=== PATIENT | female | born 1935 | race Caucasian/White ===

== ENCOUNTER 2017-03-12 08:49 | Inpatient (IN) | payer MEDICARE, BC ==
[2017-03-12] MEDS ORDERED: Magnesium Hydroxide 400 MG/5 ML Susp 30 ML Cup PO PRN (09:38)
[2017-03-12] MEDS ORDERED: Albuterol 0.083% 2.5 MG/3 ML Neb Soln INH PRN (09:38)
[2017-03-12] MEDS ORDERED: Albuterol 8 GM Inhaler INH PRN (09:38)
[2017-03-12] MEDS ORDERED: Docusate Sodium 100 MG Cap PO PRN (09:38)
[2017-03-12] MEDS ORDERED: Calcium Carbonate 500 MG Tab.Chew PO PRN (09:38)
--- NOTE | 2017-03-12 09:45 | PCM.SN ---
- Free Text/Narrative Note: Please use acute Admission H&P for Swing Bed admission H&P. Dr. Morris consulted and advised swing bed admission.
[2017-03-12] MEDS: LORazepam 0.5 MG Tab PO PRN ×2 (10:29→18:22)
[2017-03-12] MEDS: Nystatin Susp 100,000 Unit/ML 5 ML UD Cup PO SCH ×3 (11:45→20:25)
[2017-03-12] MEDS: SPIRIVA RESPIMAT IH SCH (16:35)
[2017-03-12] MEDS: Acetaminophen 325 MG Tab PO PRN (18:22)
--- NOTE | 2017-03-12 19:46 | PCM.PN ---
- General Info Date of Service: 03/12/17 Functional Status: Reports: pain controlled - Review of Systems General: Reports: Chills HEENT: Reports: no symptoms Pulmonary: Reports: shortness of breath Cardiovascular: Reports: Palpitations, Dyspnea on Exertion Gastrointestinal: Reports: No symptoms Genitourinary: Reports: no symptoms Musculoskeletal: Reports: no symptoms Skin: Reports: no symptoms Neurological: Reports: Tremors Psychiatric: Reports: no symptoms - Patient Data Vitals - most recent: Last Vital Signs Temp 98.4 F 03/12/17 14:00 Pulse 95 03/12/17 14:00 Resp 20 03/12/17 14:00 BP 149/78 H 03/12/17 14:00 Pulse Ox 92 L 03/12/17 14:00 Weight - most recent: 161 lb 13.109 oz Med Orders - Current: Current Medications Acetaminophen (Tylenol) 650 mg PO Q4H PRN PRN Reason: Pain (Mild 1-3)/fever Last Admin: 03/12/17 18:22 Dose: 650 mg Albuterol (Proventil Neb Soln) 2.5 mg INH BID PRN PRN Reason: Shortness of Breath Albuterol (Ventolin Hfa) 0 gm INH Q4H PRN PRN Reason: Shortness of Breath Budesonide (Pulmicort) 0.5 mg INH BIDRT [facility] Calcium Carbonate/Glycine (Tums) 500 mg PO QID PRN PRN Reason: Dyspepsia Ceftriaxone Sodium (Rocephin) 1 gm IVPUSH Q24H [facility] Docusate Sodium (Colace) 100 mg PO BID PRN PRN Reason: Constipation Enoxaparin Sodium (Lovenox) 30 mg SUBCUT Q24H [facility] Levothyroxine Sodium (Synthroid) 100 mcg PO 0700 [facility] Lorazepam (Ativan) 0 mg PO Q6H PRN PRN Reason: Anxiety Last Admin: 03/12/17 18:22 Dose: 0.5 mg Magnesium Hydroxide (Milk Of Magnesia) 30 ml PO Q12H PRN PRN Reason: Constipation Metoprolol Tartrate (Lopressor) 37.5 mg PO BID [facility] Ptom [Perforomist] (20 Mcg)) 20 mcg NEB BIDRT [facility] Ptom [Daliresp] 500 (Mcg)) 500 mcg PO DAILY [facility] Ptom [Spiriva (Respimat] 2 Inh)) 2 inh IH 1600 [place] Last Admin: 03/12/17 16:35 Dose: 2 inh Nystatin (Mycostatin) 5 ml PO QID [facility] Last Admin: 03/12/17 16:34 Dose: 5 ml Pantoprazole Sodium (Protonix Iv) 40 mg IVPUSH Q24H [facility] Promethazine HCl/Codeine (Phenergan With Codeine) 5 ml PO Q6H PRN PRN Reason: Cough Temazepam (Restoril) 15 mg PO BEDTIME PRN PRN Reason: Sleep - Exam General: alert, oriented, cooperative Neck: supple, trachea midline, no JVD Lungs: Wheezing Cardiovascular: Tachycardia Peripheral Pulses: 2+: Carotid (L), Carotid (R), Radial (L), Radial (R), Posterior Tibial (L), Posterior Tibial (R) Skin: warm, dry, intact Neurological: no new focal deficit Psy/Mental Status: alert, normal affect, normal mood EKG INTERPRETATION EKG Date: 03/12/17 Time: 18:20 Rhythm: other (Atrial Tach?) Rate (beats/min): 168 EKG Interpretation Comments: 2nd EKG at 18:45: Rate 115 Sinus Tach - Problem List Review Problem List Initiated/Reviewed/Updated: Yes - My Orders Last 24 Hours: My Active Orders 03/12/17 18:12 EKG Documentation Completion [RC] STAT - Plan Plan:: 19:05 This patient was admitted for pneumonia, COPD exacerbation. She has been having intermittent periods of HR of 160-170. She has been on Cardizem attempted without success, Digoxin with minimimal improvement, and now metoprolol PO. Patient this evening had HR again of 170, RN informed me. I ordered an EKG, this appears as atrial tachycardia verse rapid a-fib. I have sent EKG to base draw operator and spoke to him, he will review and call me back. The patient after having HR of 170 for about 30 minutes, is now at 110 appearing sinus tach. 194: I called back. Dr. Haywood base draw operator has received the EKGs, he reports he will call me back after he reviews them. 20:05: I spoke to base draw operator, he reports the EKG looks like ventricular rapid a-fib. He reports continue the Metroprolol. He reports if she goes back up to 170s treat with Cardizem. If that is not effective could as a another resort to Amiodarone. He reports if she continues to go in and out of a-fib he would anticoagulate her long-term.RN notified to inform me if patient HR changes.
[2017-03-12] MEDS: Metoprolol Tartrate 25 MG Tab PO SCH (20:25)
[2017-03-12] MEDS: Budesonide 0.5 MG/2 ML Neb Susp INH SCH (20:28)
[2017-03-12] MEDS: PERFOROMIST 20 MCG NEB SCH (20:32)
[2017-03-12] MEDS: Temazepam 15 MG Cap PO PRN (21:50)
[2017-03-12] MEDS: Codeine/Promethazine 10-6.25 MG/5 ML Syrup 5 ML UD Cup PO PRN (22:20)
[2017-03-13] MEDS: Levothyroxine 100 MCG Tab PO SCH (06:34)
[2017-03-13] MEDS: Metoprolol Tartrate 25 MG Tab PO SCH ×2 (07:44→20:10)
[2017-03-13] MEDS: Nystatin Susp 100,000 Unit/ML 5 ML UD Cup PO SCH ×4 (07:45→20:10)
[2017-03-13] MEDS: Pantoprazole 40 MG Vial IVPUSH SCH (07:45)
[2017-03-13] MEDS: cefTRIAXone 1 GM Vial IVPUSH SCH (07:50)
[2017-03-13] MEDS: Enoxaparin 30 MG/0.3 ML Syringe SUBCUT SCH (07:54)
[2017-03-13] MEDS: DALIRESP 500 MCG PO SCH (08:16)
[2017-03-13] MEDS: LORazepam 0.5 MG Tab PO PRN (08:17)
[2017-03-13] MEDS: Budesonide 0.5 MG/2 ML Neb Susp INH SCH ×2 (08:40→20:11)
[2017-03-13] MEDS: PERFOROMIST 20 MCG NEB SCH ×2 (08:40→20:11)
[2017-03-13] MEDS: SPIRIVA RESPIMAT IH SCH (16:24)
[2017-03-13] MEDS: Codeine/Promethazine 10-6.25 MG/5 ML Syrup 5 ML UD Cup PO PRN (21:00)
[2017-03-13] MEDS: Temazepam 15 MG Cap PO PRN (21:00)
[2017-03-14] MEDS: Levothyroxine 100 MCG Tab PO SCH (07:24)
[2017-03-14] MEDS: Metoprolol Tartrate 25 MG Tab PO SCH ×2 (07:43→19:59)
[2017-03-14] MEDS: Nystatin Susp 100,000 Unit/ML 5 ML UD Cup PO SCH ×4 (07:44→20:01)
[2017-03-14] MEDS: Enoxaparin 30 MG/0.3 ML Syringe SUBCUT SCH (07:45)
[2017-03-14] MEDS: Pantoprazole 40 MG Vial IVPUSH SCH (07:46)
[2017-03-14] MEDS: DALIRESP 500 MCG PO SCH (07:50)
[2017-03-14] MEDS: cefTRIAXone 1 GM Vial IVPUSH SCH (07:51)
[2017-03-14] MEDS: PERFOROMIST 20 MCG NEB SCH ×2 (08:54→20:01)
[2017-03-14] MEDS: Budesonide 0.5 MG/2 ML Neb Susp INH SCH ×2 (08:54→20:01)
[2017-03-14] MEDS: Acetaminophen 325 MG Tab PO PRN ×2 (08:57→16:09)
[2017-03-14] MEDS: Codeine/Promethazine 10-6.25 MG/5 ML Syrup 5 ML UD Cup PO PRN ×2 (08:57→20:03)
[2017-03-14] MEDS: SPIRIVA RESPIMAT IH SCH (16:14)
[2017-03-14] MEDS: Temazepam 15 MG Cap PO PRN (21:00)
[2017-03-15] MEDS: Levothyroxine 100 MCG Tab PO SCH (06:37)
[2017-03-15 07:43] VITALS: BP 157/90
[2017-03-15] MEDS: Metoprolol Tartrate 25 MG Tab PO SCH (07:51)
[2017-03-15] MEDS: Enoxaparin 30 MG/0.3 ML Syringe SUBCUT SCH (07:53)
[2017-03-15] MEDS: Pantoprazole 40 MG Vial IVPUSH SCH (07:54)
[2017-03-15] MEDS: cefTRIAXone 1 GM Vial IVPUSH SCH (07:55)
[2017-03-15] MEDS: DALIRESP 500 MCG PO SCH (07:55)
[2017-03-15] MEDS: Nystatin Susp 100,000 Unit/ML 5 ML UD Cup PO SCH (08:05)
[2017-03-15] MEDS: PERFOROMIST 20 MCG NEB SCH (09:25)
[2017-03-15] MEDS: Budesonide 0.5 MG/2 ML Neb Susp INH SCH (09:25)
--- NOTE | 2017-03-16 08:58 | DISCH ---
FINAL DIAGNOSES: 1. Right middle lobe pneumonia. 2. Atrial fibrillation, currently in sinus rhythm. 3. Oral thrush. HISTORY OF PRESENT ILLNESS: Jes is an 81-year-old female who was admitted to the hospital initially on 03/08 secondary to right middle lobe pneumonia. She responded well to IV antibiotic treatment. However, she did have a bout of atrial fibrillation with rapid ventricular response in which she was given IV Cardizem along with IV digoxin without any conversion. Dr. Morris then went ahead and did start her on metoprolol, on which she did convert back to normal sinus rhythm. She has had one episode of RVR throughout the week and however she has been fairly stable on metoprolol at this point in time. She has not had anything in the last 24 hours in regard to her rapid ventricular response. She has been feeling quite well. She states that she continues to have little bit of cough. She has been afebrile. She states that she has been up walking, does feel like her strength is back as well. It does feel that she is feeling well enough to go home at this point in time. HOSPITAL COURSE: Please see HPI. LABORATORY DATA: From 03/13 shows a white blood count to be 7900, CRP was mildly elevated at 5.4. Initially on admit, she was at 23. White blood count on admit was 11,400, then again backed down to 7,900 at this point in time. DISCHARGE MEDICATIONS: Resume all home medications. She was also restarted on metoprolol tartrate 37.5 mg b.i.d. along with Ceftin 500 mg twice a day for the next 7 days. She will also have a nystatin swish and swallow one teaspoonful q.i.d. x10 days. DISCHARGE INSTRUCTIONS: She will be able to resume her usual diet. She will be discharged home at this point in time. She has a followup appointment in 1 week with Piper Yancey PA-C, her primary provider. I told her that we would need to closely look at repeat imaging just to make sure that the pneumonia has completely cleared as well. Daughter was present today and they are both in agreement with discharge at this time. She will have echocardiogram today as well. RUBÉN/STONEY /[id number]
== END 2017-03-15 10:03 | disposition home or self-care (01) | DRG 190 ==
LOC: UNDOADMIN 08:49 → CC.MS 08:49 → UNDOADMIN 09:40 → CC.MS 09:40
PROVIDERS: ADMIT Physician Assistant Medical; ATTEND Family Medicine
DX: J44.0 Chronic obstructive pulmonary disease with (acute) lower respiratory infection (principal); J18.9 Pneumonia, unspecified organism; B37.0 Candidal stomatitis; J44.1 Chronic obstructive pulmonary disease with (acute) exacerbation; Z87.891 Personal history of nicotine dependence; I48.91 Unspecified atrial fibrillation; Z88.2 Allergy status to sulfonamides; Z79.899 Other long term (current) drug therapy
CPT/HCPCS: 36415; 85025; 86140; 93005; 94640; A9270-GY; C9113; J0696; J1650

== ENCOUNTER 2019-08-27 13:49 | Emergency (ER) | payer MEDICARE, BC ==
[2019-08-27 14:13] VITALS: BP 151/92; PULSE 78
--- NOTE | 2019-08-27 15:32 | EDM.PDOC ---
ED HPI GENERAL MEDICAL PROBLEM - General Chief Complaint: General Stated Complaint: arm pain Time Seen by Provider: 08/27/19 13:53 Source of Information: Reports: Patient History Limitations: Reports: No Limitations - History of Present Illness INITIAL COMMENTS - FREE TEXT/NARRATIVE: This patient is an 83 year old female that presents to the ER. Patient reports she was at [facility] and walking out of yarsanism when she tripped and fell. Patient reports hitting the right cheek, but it does not hurt. Patient reports landing on her right wrist. Patient denies hitting head, loc, n, v, vision changes, neck pain, chest pain, shortness of breath, or any other complaints other than pain to the right wrist. Patient reports she was able to get up and waled into the ER. Patient denies being on blood thinners. 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 2 - got hit here, but no pain, no tenderness. Severity: Mild Improves with: Reports: None Worsens with: Reports: None Associated Symptoms: Reports: No Other Symptoms. Denies: Confusion, Chest Pain , Headaches, Malaise, Nausea/Vomiting, Seizure, Shortness of Breath, Syncope, Weakness Right Lower Arm Pain Score (Numeric/FACES): 7 - Related Data Allergies Allergy/AdvReac Type Severity Reaction Status Date / Time Sulfa (Sulfonamide Allergy Intermediate Swollen Verified 03/30/19 08:23 Antibiotics) Tongue Home Meds: Home Meds Albuterol Sulfate 3 ml INH DAILY PRN 02/04/15 [History] Levothyroxine [Synthroid] 100 mcg PO DAILY 02/05/15 [History] Tiotropium [Spiriva HandiHaler] 2 inh INH DAILY 02/05/15 [History] Beta-Carotene(A) W-C & E/Min [Vision Vitamins] 2 tab PO DAILY 04/10/15 [History] Calcium Carb & Citrate/Vit D3 [Calcium + D3 ER Tablet] 1 tab PO DAILY 04/10/15 [ History] Garlic [Garlique] 1 tab PO DAILY 04/10/15 [History] Budesonide [Pulmicort] 0.5 mg INH BID 07/31/16 [History] Formoterol [Perforomist] 20 mcg NEB BIDRT 07/31/16 [History] Roflumilast [Daliresp] 500 mcg PO DAILY 07/31/16 [History] Denosumab [Prolia] 60 mg SUBCUT Q6M 03/08/17 [History] LORazepam 0.25 - 0.5 mg PO Q6H 03/08/17 [History] Ranitidine HCl [Zantac 75] 75 mg PO DAILY PRN 03/08/17 [History] Metoprolol Tartrate 37.5 mg PO BID #60 tablet 03/15/17 [Rx] Montelukast Sodium 10 mg PO DAILY 03/07/18 [History] Acetaminophen [Tylenol Extra Strength] 500 mg PO Q4HR PRN 03/28/19 [History] Albuterol [Ventolin 2 MG/5 ML] 1 ea INH Q4HR PRN 03/28/19 [History] Betamethasone Dipropionate [Diprosone 0.05% Oint] 1 ea .XX BID PRN 03/28/19 [ History] Escitalopram Oxalate 5 mg PO DAILY 03/28/19 [History] Fluticasone Propionate [Flonase Allergy Relief] 2 each ANDER DAILY PRN 03/28/19 [ History] Past Medical History HEENT History: Reports: Cataract, Macular Degeneration Respiratory History: Reports: COPD Other Respiratory History: saw Dr. Gordillo here on 02-04-17 as a followup; PFT done at that time; he encouraged her to come back to pulmonary rehab - Past Surgical History Other Respiratory Surgeries/Procedures: also see admission general information GI Surgical History: Reports: Cholecystectomy Other Musculoskeletal Surgeries/Procedures:: left knee bothers Social & Family History - Family History Family Medical History: Noncontributory - Tobacco Use Smoking Status *Q: Former Smoker Used Tobacco, but Quit: Yes Month/Year Tobacco Last Used: 2004 - Caffeine Use Caffeine Use: Reports: Coffee ED ROS GENERAL - Review of Systems Review Of Systems: See Below Constitutional: Reports: No Symptoms HEENT: Reports: No Symptoms Respiratory: Reports: No Symptoms Cardiovascular: Reports: No Symptoms Endocrine: Reports: No Symptoms GI/Abdominal: Reports: No Symptoms : Reports: No Symptoms Musculoskeletal: Reports: Joint Pain (right wrist), Joint Swelling (right wrist) . Denies: Neck Pain, Shoulder Pain, Arm Pain, Back Pain, Leg Pain Skin: Reports: No Symptoms Neurological: Reports: No Symptoms Psychiatric: Reports: No Symptoms Hematologic/Lymphatic: Reports: No Symptoms Immunologic: Reports: No Symptoms ED EXAM, GENERAL - Physical Exam Exam: See Below Exam Limited By: No Limitations General Appearance: Alert, WD/WN, No Apparent Distress Eye Exam: Bilateral Eye: EOMI, Normal Inspection, PERRL Ears: Normal External Exam, Normal Canal, Hearing Grossly Normal, Normal TMs, Other (hearing aids removed for exam by patient and put back by patient.) Ear Exam: Bilateral Ear: Auricle Normal, Canal Normal, TM normal Nose: Normal Inspection, Normal Mucosa, No Blood Throat/Mouth: Normal Inspection, Normal Lips, Normal Teeth, Normal Gums, Normal Oropharynx, Normal Voice, No Airway Compromise Head: Atraumatic, Normocephalic. No: Facial Swelling, Facial Tenderness, Sinus Tenderness Neck: Normal Inspection, Supple, Non-Tender, Full Range of Motion Respiratory/Chest: No Respiratory Distress, Lungs Clear, Normal Breath Sounds, No Accessory Muscle Use, Chest Non-Tender Cardiovascular: Normal Peripheral Pulses, Regular Rate, Rhythm, No Edema, No Gallop, No JVD, No Murmur, No Rub Peripheral Pulses: 2+: Radial (L), Radial (R), Posterior Tibial (L), Posterior Tibial (R), Dorsalis Pedis (L), Dorsalis Pedis (R) GI/Abdominal: Normal Bowel Sounds, Soft, Non-Tender, No Organomegaly, No Distention, No Abnormal Bruit, No Mass, Pelvis Stable (Female) Exam: Deferred Rectal (Female) Exam: Deferred Back Exam: Normal Inspection, Full Range of Motion. No: CVA Tenderness (L), CVA Tenderness (R), Decreased Range of Motion, Muscle Spasm, Paraspinal Tenderness, Vertebral Tenderness Extremities: No Pedal Edema, Normal Capillary Refill, Joint Swelling (right wrist), Limited Range of Motion (due to pain of right wrist), Other (Right distal radial wrist pain, tenderness, swelling. Pulses +2, cap refill < 2 sec. Sensory itnact. Neurovascular intact. ) Neurological: Alert, Oriented, Normal Cognition, Normal Gait, No Motor/Sensory Deficits Psychiatric: Normal Affect, Normal Mood Skin Exam: Warm, Dry, Intact, Normal Color, No Rash ED GENERAL MEDICAL PROCEDURES - Splinting Right Upper Extremity Pre-procedure NV status: Normal Post-procedure NV status: Normal Splint Material: Fiberglass, Sling Splint Design: Sugar Tong Applied & Form Fitted By: Provider Provider Post-Splint Application NV Check: NV Status Normal, Good Position Complications: No Course - Vital Signs Last Recorded V/S: Last Vital Signs Temp 98.2 F 08/27/19 14:01 Pulse 78 08/27/19 14:01 Resp 18 08/27/19 14:01 BP 151/92 H 08/27/19 14:01 Pulse Ox 98 08/27/19 14:01 - Orders/Labs/Meds Orders: Active Orders 24 hr Category Date Time Status Forearm 2V Rt [CR] Stat Exams 08/27/19 13:52 Taken Wrist Comp Min 3V Rt [CR] Stat Exams 08/27/19 13:52 Taken - Radiology Interpretation Free Text/Narrative:: Right wrist: Fracture distal radius. No dislocation, no fb. Departure - Departure Time of Disposition: 15:32 Disposition: Home, Self-Care 01 Condition: Fair Clinical Impression: Radius fracture, Fall - Discharge Information *PRESCRIPTION DRUG MONITORING PROGRAM REVIEWED*: Not Applicable *COPY OF PRESCRIPTION DRUG MONITORING REPORT IN PATIENT STEPHEN: Not Applicable Instructions: Radial Fracture, Cast or Splint Care, Adult, [id number] Referrals: Piper Yancey PA-C [Primary Care Provider] - Forms: ED Department Discharge Additional Instructions: Followup with Orthopedic: I spoke with orthopedic at [facility]. Call orthopedic Wednesday for an appointment to be seen this week Return to the ER for worsening of condition or any emergent concerns Followup with primary care provider as needed May take Tylenol or Motrin for pain :Take with food Rest Ice Elevate Sling - My Orders Last 24 Hours: My Active Orders 08/27/19 13:52 Forearm 2V Rt [CR] Stat Wrist Comp Min 3V Rt [CR] Stat - Assessment/Plan Last 24 Hours: My Active Orders 08/27/19 13:52 Forearm 2V Rt [CR] Stat Wrist Comp Min 3V Rt [CR] Stat Plan: Please see RN note for for PFSH
== END 2019-08-27 16:00 | disposition home or self-care (01) ==
LOC: CC.ED 13:49
DX: S52.501A Unspecified fracture of the lower end of right radius, initial encounter for closed fracture (principal); J44.9 Chronic obstructive pulmonary disease, unspecified; Z88.2 Allergy status to sulfonamides; Z79.51 Long term (current) use of inhaled steroids; Z87.891 Personal history of nicotine dependence; W01.10XA Fall on same level from slipping, tripping and stumbling with subsequent striking against unspecified object, initial encounter
CPT/HCPCS: 29125; 73090-RT; 73110-RT; 99283-25; 99284

== ENCOUNTER 2019-09-02 11:57 | Inpatient (IN) | payer MEDICARE, BC ==
[2019-09-02] MEDS ORDERED: Albuterol/Ipratropium 3.0-0.5 MG/3 ML Neb Soln NEB ONE (12:18)
[2019-09-02 12:31] LABS: CHLORIDE,CL 95 mEq/L (98-106); SODIUM,NA 132 mEq/L (136-145)
[2019-09-02] MEDS ORDERED: Azithromycin 500 MG in Sodium Chloride 0.9% 250 ML IV SCH (14:17)
[2019-09-02] MEDS ORDERED: Albuterol 0.083% 2.5 MG/3 ML Neb Soln INH PRN (14:17)
[2019-09-02] MEDS ORDERED: Fluticasone Propionate Nasal Spray 16 GM Bottle NAS PRN (14:17)
[2019-09-02] MEDS ORDERED: BETAMETHASONE DIPROPIONATE TOP PRN (14:17)
[2019-09-02] MEDS ORDERED: cefTRIAXone 1 GM Vial IVPUSH SCH (14:17)
[2019-09-02] MEDS ORDERED: Temazepam 15 MG Cap PO PRN (14:17)
[2019-09-02] MEDS ORDERED: Albuterol/Ipratropium 3.0-0.5 MG/3 ML Neb Soln NEB PRN (14:17)
[2019-09-02] MEDS ORDERED: Ondansetron 4 MG/2 ML SDV IV PRN (14:17)
[2019-09-02] MEDS ORDERED: Famotidine 20 MG Tab PO PRN (14:17)
[2019-09-02] MEDS: Albuterol/Ipratropium 3.0-0.5 MG/3 ML Neb Soln NEB SCH ×2 (15:18→19:23)
[2019-09-02] MEDS ORDERED: Acetaminophen 325 MG Tab PO PRN (17:27)
[2019-09-02] MEDS ORDERED: Enoxaparin 40 MG/0.4 ML Syringe SUBCUT SCH (18:00)
[2019-09-02] MEDS ORDERED: Metoprolol Tartrate 25 MG Tab PO SCH (20:00)
[2019-09-02] MEDS ORDERED: Non-Formulary Medication 1 Each (Formoterol [Perforomist] 20 MCG) NEB SCH (20:00)
[2019-09-02] MEDS ORDERED: Budesonide 0.5 MG/2 ML Neb Susp INH SCH (20:00)
[2019-09-02] MEDS ORDERED: Diltiazem 25 MG/5 ML SDV IVPUSH ONE ×2 (20:00→21:37)
--- NOTE | 2019-09-02 20:10 | PCM.PN ---
- General Info Date of Service: 09/02/19 Functional Status: Reports: Ambulating - Review of Systems Pulmonary: Reports: Shortness of Breath (extremely, much worse after walking to bathroom at 1915. ) Cardiovascular: Reports: Palpitations Gastrointestinal: Reports: Nausea. Denies: Abdominal Pain Genitourinary: Reports: No Symptoms Musculoskeletal: Reports: No Symptoms Skin: Reports: No Symptoms Neurological: Reports: No Symptoms Psychiatric: Reports: Anxiety - Patient Data Vitals - Most Recent: Last Vital Signs Temp 101.1 F H 09/02/19 19:37 Pulse 160 H 09/02/19 19:44 Resp 20 09/02/19 19:37 BP 146/85 H 09/02/19 19:44 Pulse Ox 90 L 09/02/19 19:37 Weight - Most Recent: 145 lb Lab Results Last 24 Hours: Laboratory Results - last 24 hr 09/02/19 09/02/19 09/02/19 Range/Units 12:07 12:07 12:11 WBC 11.2 H (5.0-10.0) 10^3/uL RBC 3.48 L (4.00-5.50) 10^6/uL Hgb 10.9 L (12.0-16.0) g/dL Hct 32.7 L (37.0-47.0) % MCV 94.0 (82.0-94.0) fL MCH 31.3 (27.0-32.0) pg MCHC 33.3 (33.0-38.0) g/dL RDW Coeff of Teodora 13.1 (11.0-15.0) % Plt Count 267 (150-400) 10^3/uL Neut % (Auto) 83.1 (35-85) % Lymph % (Auto) 6.7 L (10-55) % [place] % (Auto) 9.9 (0-16) % Eos % (Auto) 0.1 (0-5) % Baso % (Auto) 0.2 (0-3) % Neut # (Auto) 9.32 H (1.80-7.00) 10^3/uL Lymph # (Auto) 0.75 L (1.00-4.80) 10^3/uL [place] # (Auto) 1.11 H (0.00-0.80) 10^3/uL Eos # (Auto) 0.01 (0.00-0.45) 10^3/uL Baso # (Auto) 0.02 10^3/uL Sodium 132 L (136-145) mEq/L Potassium 3.8 (3.5-5.0) mEq/L Chloride 95 L (98-106) mEq/L Carbon Dioxide 26 (21-32) mmol/L BUN 11 D (7-18) mg/dL Creatinine 0.7 (0.6-1.0) mg/dL Est Cr Clr Drug Dosing TNP Estimated GFR (MDRD) > 60 (>=60) mL/min Glucose 119 H (75-99) mg/dL Lactic Acid 1.1 (0.4-2.0) mmol/L Calcium 8.7 (8.4-10.1) mg/dL Total Bilirubin 0.3 (0.0-1.0) mg/dL AST 21 (15-37) U/L ALT 28 (12-78) U/L Alkaline Phosphatase 80 (46-116) U/L C-Reactive Protein 15.6 H (0.2-0.8) mg/dL Total Protein 6.8 (6.4-8.2) g/dL Albumin 2.7 L (3.4-5.0) g/dL Win Results Last 24 Hours: Microbiology 09/02/19 12:07 Influenza Type A Antigen Screen - Final Nasopharyngeal Swab NEGATIVE INFLUENZA A VIRUS AG REFERENCE RANGE: NEGATIVE Influenza Type B Antigen Screen - Final NEGATIVE INFLUENZA B VIRUS AG REFERENCE RANGE: NEGATIVE Med Orders - Current: Current Medications Acetaminophen (Tylenol) 650 mg PO Q6H PRN PRN Reason: Pain Last Admin: 09/02/19 17:39 Dose: 650 mg Albuterol (Proventil Neb Soln) 2.5 mg INH DAILY PRN PRN Reason: Shortness of Breath Albuterol/Ipratropium (Duoneb 3.0-0.5 Mg/3 Ml) 3 ml NEB Q4H PRN PRN Reason: Shortness Of Breath/wheezing Albuterol/Ipratropium (Duoneb 3.0-0.5 Mg/3 Ml) 3 ml NEB QIDRT [facility] Last Admin: 09/02/19 19:23 Dose: 3 ml Budesonide (Pulmicort) 0.5 mg INH BIDRT [facility] Last Admin: 09/02/19 19:44 Dose: 0.5 mg Calcium Carbonate (Calcium Carbonate/Vitamin D 1250 Mg-200 Unit) 1 tab PO DAILY [facility] Ceftriaxone Sodium (Rocephin) 1 gm IVPUSH Q24H [facility] Last Admin: 09/02/19 15:18 Dose: 1 gm Citalopram Hydrobromide (Celexa) 10 mg PO DAILY [facility] Diltiazem HCl (Diltiazem) 20 mg IVPUSH ONETIME ONE Stop: 09/02/19 20:01 Enoxaparin Sodium (Lovenox) 40 mg SUBCUT Q24H [facility] Last Admin: 09/02/19 18:04 Dose: 40 mg Famotidine (Pepcid) 10 mg PO DAILY PRN PRN Reason: Nausea Fluticasone Propionate (Flonase) 0 gm ANDRE DAILY PRN PRN Reason: Allergies Azithromycin 500 mg/ Sodium (Chloride) 250 mls @ 250 mls/hr IV Q24H [facility] Last Admin: 09/02/19 15:18 Dose: 250 mls/hr Diltiazem HCl 100 mg/ Sodium (Chloride) 100 mls @ 5 mls/hr IV TITRATE [facility]; Protocol Levothyroxine Sodium (Synthroid) 100 mcg PO DAILY [facility] Metoprolol Tartrate (Lopressor) 37.5 mg PO BID [facility] Last Admin: 09/02/19 19:44 Dose: 37.5 mg Multivitamins/Minerals (Prosight) 2 tab PO DAILY [facility] Non-Formulary Medication (Betamethasone Dipropionate) 1 applic TOP BID PRN PRN Reason: wound Non-Formulary Medication (Formoterol [Perforomist]) 20 mcg NEB BIDRT [facility] Non-Formulary Medication (Garlic [Garlique]) 1 tab PO DAILY [facility] Non-Formulary Medication (Roflumilast [Daliresp]) 500 mcg PO DAILY [facility] Ondansetron HCl (Zofran) 4 mg IV Q6H PRN PRN Reason: Nausea/Vomiting Temazepam (Restoril) 15 mg PO BEDTIME PRN PRN Reason: Sleep Tiotropium [place] (Spiriva Handihaler) 18 mcg INH DAILY [facility] Discontinued Medications Albuterol/Ipratropium (Duoneb 3.0-0.5 Mg/3 Ml) 3 ml NEB ONETIME ONE Stop: 09/02/19 12:19 Last Admin: 09/02/19 12:26 Dose: 3 ml - Exam General: Alert, Oriented, Severe Distress Lungs: Rhonchi (moderate throughout), Other (Respiratory distress, 34/min.) Cardiovascular: Irregular Rhythm, Tachycardia GI/Abdominal Exam: Soft, Non-Tender Extremities: Normal Inspection, No Pedal Edema Peripheral Pulses: 2+: Radial (L), Radial (R), Posterior Tibial (L), Posterior Tibial (R) Skin: Warm, Dry, Intact Psy/Mental Status: Alert, Anxious - Problem List Review Problem List Initiated/Reviewed/Updated: Yes - My Orders Last 24 Hours: My Active Orders 09/02/19 Chest 2V [CR] Routine 09/02/19 12:07 CULTURE BLOOD [BC] Routine 09/02/19 12:18 RT Aerosol Therapy [RC] 0800,1200,1600,199909/02/19 14:00 Resuscitation Status Routine 09/02/19 14:17 Patient Status [ADT] Routine Antiembolic Devices [RC] 1000,2200 February Shower [RC] .PRN Notify Provider Vital Signs [RC] .PRN Oxygen Therapy [RC] .PRN Pulse Oximetry [RC] .PRN Up With Assistance [RC] .PRN Up to Chair [RC] .PRN Vital Signs [RC] 0000,0800,1200,1600,1999 Albuterol [Proventil Neb Soln] 2.5 mg INH DAILY PRN Albuterol/Ipratropium [DuoNeb 3.0-0.5 MG/3 ML] 3 ml NEB Q4H PRN Azithromycin [Zithromax] 500 mg Sodium Chloride 0.9% [Normal Saline] 250 ml IV Q24H Betamethasone Dipropionate 1 applic TOP BID PRN Famotidine [Pepcid] 10 mg PO DAILY PRN Fluticasone Propionate [Flonase] 0 gm ANDRE DAILY PRN Ondansetron [Zofran] 4 mg IV Q6H PRN Temazepam [Restoril] 15 mg PO BEDTIME PRN cefTRIAXone [Rocephin] 1 gm IVPUSH Q24H Antiembolic Hose [OM.PC] Per Unit Routine 09/02/19 16:00 Albuterol/Ipratropium [DuoNeb 3.0-0.5 MG/3 ML] 3 ml NEB QIDRT 09/02/19 17:27 Acetaminophen [Tylenol] 650 mg PO Q6H PRN 09/02/19 18:00 Enoxaparin [Lovenox] 40 mg SUBCUT Q24H 09/02/19 19:45 EKG Documentation Completion [RC] STAT 09/02/19 20:00 Budesonide [Pulmicort] 0.5 mg INH BIDRT Diltiazem 20 mg IVPUSH ONETIME ONE Diltiazem [Cardizem] 100 mg Sodium Chloride 0.9% [Normal Saline] 100 ml IV TITRATE Formoterol [Perforomist] 20 mcg NEB BIDRT Metoprolol Tartrate [Lopressor] 37.5 mg PO BID 09/02/19 Dinner Heart Healthy Diet [DIET] 09/03/19 05:00 BASIC METABOLIC PANEL,BMP [CHEM] DAILY C-REACTIVE PROTEIN [CHEM] DAILY CBC WITH AUTO DIFF [HEME] DAILY 09/03/19 08:00 Beta-Carotene(A) w/C & E/Min [Prosight] 2 tab PO DAILY Calcium Carbonate/Vitamin D3 [Calcium Carbonate/Vitamin D 1250 MG-200 Unit] 1 tab PO DAILY Citalopram [Celexa] 10 mg PO DAILY Garlic [Garlique] 1 tab PO DAILY Levothyroxine [Synthroid] 100 mcg PO DAILY Roflumilast [Daliresp] 500 mcg PO DAILY Tiotropium [Spiriva HandiHaler] 18 mcg INH DAILY 09/04/19 05:00 BASIC METABOLIC PANEL,BMP [CHEM] DAILY C-REACTIVE PROTEIN [CHEM] DAILY CBC WITH AUTO DIFF [HEME] DAILY 09/05/19 05:00 BASIC METABOLIC PANEL,BMP [CHEM] DAILY C-REACTIVE PROTEIN [CHEM] DAILY CBC WITH AUTO DIFF [HEME] DAILY - Plan Plan:: 09/02/191954 I got told by NEDA Sanders that the patient has a rapid HR and is more short of breath. I went to examine the patient, EKG ordered. The patient HR is irregular and fast. Patient appears much more short of breath than earlier today. Patient does have history of A-fib. 09/02/191999 Reviewed EKG: Lots of artifact, but appears to be rapid a-fib uncontrolled. I have ordered Cardizem bolus and gtt protocol. 11/09/19 2018 Patient has received the bolus cardizem, Her HR came down to 130s, then right back up to 1502-170s. GTT has been started. 09/02/19 2030 Bolus now at 10mg/hr. She remains HR of 150s. I ordered a CT angio of the chest. I have called [facility] ER and spoke to Dr. Landin. He recommends to keep tritrating the Cardizem, do the angio of chest, and fly patient. Asked [facility] to arrange transfer. Will transfer patient. Risk vs benefits discussed with patient. The risk of transfer include crash, , worsening of condition. The benefits of transfer include higher level of care, ICU, cnc grinder, irrigator sprinkling system. The benefits of staying in [place] are close to home. The risk of staying in [place] is , worsening of condition. PLEASE USE THIS H&P AND NOTE TRANSFER NOTE TO ACUTE CARE [facility] VIA FLIGHT. 09/02/192224 Patient HR is now is at 130s a-fib. Patient got another 5mg bolus of cardizem. She is currently at 15mg/hr titration. Patient reports her shortness of breath feels better. Radiologist called with Angio of chest results: No PE, new from previous pulmonary fibrosis, significant lung disease, multifocal infiltrates, bronchial thickening, interstitual edema.
[2019-09-02] MEDS: Diltiazem 100 MG in Sodium Chloride 0.9% 100 ML IV SCH ×2 (20:20→22:41)
[2019-09-02] MEDS ORDERED: Ibuprofen 200 MG Tab PO ONE (20:31)
[2019-09-02] MEDS ORDERED: LORazepam 2 MG/ML Syringe IVPUSH ONE (21:12)
[2019-09-02 21:35] VITALS: BP 130/75; PULSE 133
[2019-09-03] MEDS ORDERED: Calcium Carbonate/Vitamin D3 1250 MG-200 Unit Tab PO SCH (08:00)
[2019-09-03] MEDS ORDERED: Citalopram 10 MG Tab PO SCH (08:00)
[2019-09-03] MEDS ORDERED: Beta-Carotene (Vitamin A) w/Vitamin C & E plus Minerals Tab PO SCH (08:00)
[2019-09-03] MEDS ORDERED: Non-Formulary Medication 1 Each (Roflumilast [Daliresp] 500 MCG) PO SCH (08:00)
[2019-09-03] MEDS ORDERED: Tiotropium Inhaler 18 MCG Inhalation Powder Cap Kit of 5 INH SCH (08:00)
[2019-09-03] MEDS ORDERED: Levothyroxine 100 MCG Tab PO SCH (08:00)
[2019-09-03] MEDS ORDERED: GARLIC PO SCH (08:00)
== END 2019-09-02 22:57 | DRG 203 ==
LOC: CC.FCMC 11:57 → CC.ACU 11:57 → CC.MS 13:53 → UNDOADMIN 13:53 → CC.MS 14:00 → UNDODISIN 22:57
PROVIDERS: ADMIT Nurse Practitioner; ATTEND Family Medicine
DX: J20.9 Acute bronchitis, unspecified (principal); I48.91 Unspecified atrial fibrillation; Z88.2 Allergy status to sulfonamides; Z79.899 Other long term (current) drug therapy; Z79.51 Long term (current) use of inhaled steroids
CPT/HCPCS: 36415; 71046; 71275; 80053; 83605; 85025; 86140; 87040; 87804; 93005; 94640; A9270-GY; J0456; J0696; J1650; J2060; J3490; J7050; J7620-GY

== ENCOUNTER 2019-11-06 21:39 | Inpatient (IN) | payer MEDICARE, BC ==
--- NOTE | 2019-11-06 22:24 | EDM.PDOC ---
ED HPI GENERAL MEDICAL PROBLEM - General Chief Complaint: Respiratory Problem Stated Complaint: SOB Time Seen by Provider: 11/06/19 22:00 Source of Information: Reports: Patient, Family (daughter/granddaughter.) History Limitations: Reports: No Limitations - History of Present Illness INITIAL COMMENTS - FREE TEXT/NARRATIVE: increasing SOB. Was seen in the clinic about 1500 today and had CXR without pneumonia. Her CBC then showed WBC or 5.7, CRP was 1 and BMP has Na+ orf 134 otherwise was normal. O2 sats in the clinic was 90% on room air. Was sent home on oral prednisone which she did not take as it keeps her awake. I was going to start it in the AM. When she went to bed she had increase in SOB even with her O2 on at 2L. When she arrived here she had sats of 82% and they did go up to mid 90's% when oxygen was applied. She has audible wheezing at this time. No fever noted. She has been taking her nebs as ordered at home. Cough is still productive of white- clear sputum. Onset: Gradual Location: Reports: Chest Improves with: Reports: Rest Worsens with: Reports: Movement Associated Symptoms: Denies: Fever/Chills - Related Data Allergies Allergy/AdvReac Type Severity Reaction Status Date / Time Sulfa (Sulfonamide Allergy Intermediate Swollen Verified 11/06/19 21:41 Antibiotics) Tongue Home Meds: Home Meds Albuterol Sulfate 3 ml INH DAILY 02/04/15 [History] Levothyroxine [Synthroid] 100 mcg PO DAILY 02/05/15 [History] Tiotropium [Spiriva HandiHaler] 2 puff INH DAILY 02/05/15 [History] Beta-Carotene(A)-Vits C,E/Mins [Vision Vitamins] 2 tab PO DAILY 04/10/15 [ History] Calcium Carb, Citrate/Vit D3 [Calcium + D3 ER Tablet] 2 tab PO DAILY 04/10/15 [ History] Garlic [Garlique] 1 tab PO DAILY 04/10/15 [History] Budesonide [Pulmicort] 0.5 mg INH BID 07/31/16 [History] Formoterol [Perforomist] 20 mcg NEB BIDRT 07/31/16 [History] Roflumilast [Daliresp] 500 mcg PO DAILY 10/07/16 [History] Denosumab [Prolia] 60 mg SUBCUT Q6M 03/08/17 [History] Acetaminophen [Tylenol Extra Strength] 500 mg PO Q4HR PRN 03/28/19 [History] Albuterol [Ventolin 2 MG/5 ML] 1 - 2 puff INH Q4HR PRN 03/28/19 [History] Betamethasone Dipropionate [Diprosone 0.05% Oint] 1 applic TOP BID PRN 03/28/19 [History] Fluticasone Propionate [Flonase Allergy Relief] 2 each ANDRE DAILY PRN 03/28/19 [ History] Escitalopram Oxalate 5 mg PO DAILY 09/02/19 [History] Apixaban [Eliquis] 5 mg PO BID 11/06/19 [History] Famotidine [Pepcid] 10 mg PO DAILY 11/06/19 [History] Metoprolol Tartrate 75 mg PO BID 11/06/19 [History] busPIRone HCl [Buspirone HCl] 7.5 mg PO BID 11/06/19 [History] Past Medical History HEENT History: Reports: Cataract, Hard of Hearing, Macular Degeneration Cardiovascular History: Reports: Afib, Hypertension, SOB on Exertion Respiratory History: Reports: Bronchitis, Recurrent, COPD, SOB Other Respiratory History: saw Dr. Gordillo here on 02-04-17 as a followup; PFT done at that time; he encouraged her to come back to pulmonary rehab Genitourinary History: Reports: None [employer] History: Reports: None Musculoskeletal History: Reports: Osteoporosis, Other (See Below) Other Musculoskeletal History: Patient has a broken R) arm Psychiatric History: Reports: Anxiety Endocrine/Metabolic History: Reports: Hypothyroidism - Past Surgical History Head Surgeries/Procedures: Reports: None HEENT Surgical History: Reports: Cataract Surgery Other Respiratory Surgeries/Procedures: also see admission general information GI Surgical History: Reports: Cholecystectomy Female Surgical History: Reports: None Other Musculoskeletal Surgeries/Procedures:: left knee bothers Social & Family History - Family History Family Medical History: Noncontributory - Tobacco Use Smoking Status *Q: Former Smoker Used Tobacco, but Quit: Yes Month/Year Tobacco Last Used: long time ago - Caffeine Use Caffeine Use: Reports: None, Coffee Other Caffeine Use: decaf coffee - Recreational Drug Use Recreational Drug Use: No - Living Situation & Occupation Living situation: Reports: Single, , Alone Occupation: Retired ED ROS GENERAL - Review of Systems Review Of Systems: See Below Constitutional: Denies: Fever, Chills HEENT: Reports: No Symptoms Respiratory: Reports: Shortness of Breath, Wheezing, Cough, Sputum Cardiovascular: Denies: Chest Pain, Edema GI/Abdominal: Reports: No Symptoms : Reports: No Symptoms Musculoskeletal: Reports: No Symptoms Skin: Reports: No Symptoms Neurological: Denies: Confusion Psychiatric: Reports: Anxiety (Buspar was increased in the clinic to 7.5 mg today. ), Depression (Escitalopram was increased to 10 mg today in the clinic.) . Denies: Suicidal Ideation ED EXAM, GENERAL - Physical Exam Exam: See Below Exam Limited By: No Limitations General Appearance: Alert, WD/WN, Anxious, Moderate Distress Ears: Normal External Exam, Normal Canal, Normal TMs Nose: Normal Inspection Throat/Mouth: Normal Inspection, Normal Oropharynx Head: Atraumatic, Normocephalic Neck: Normal Inspection, Supple, Non-Tender Respiratory/Chest: Wheezing (throughout all lung andres. No rales noted.) Cardiovascular: Other (irregular rate with NSR with PVC's on the monitor. Currently is not in afib.) GI/Abdominal: Normal Bowel Sounds, Soft, Non-Tender Back Exam: Normal Inspection Extremities: Non-Tender, No Pedal Edema, Normal Capillary Refill Neurological: Alert, Oriented Skin Exam: Warm, Dry, Intact Course - Vital Signs Last Recorded V/S: Last Vital Signs Temp 98.5 F 11/06/19 21:52 Pulse 83 11/06/19 21:52 Resp 20 11/06/19 21:52 BP 152/80 H 11/06/19 21:52 Pulse Ox 100 11/06/19 21:52 - Orders/Labs/Meds Orders: Active Orders 24 hr Category Date Time Status Supplemental O2 [Oxygen Therapy, ED] [RC] ASDIRECTED Care 11/06/19 22:02 Active - Re-Assessments/Exams Free Text/Narrative Re-Assessment/Exam: 11/06/19 22:29 Discussed with pt and family that she needs to be admitted for IV steroids and oxygen to help get her COPD controlled. They all voice understanding. Will be admitted acute at this time for steroids and watch for respiratory compromise. Departure - Departure Time of Disposition: 22:30 Disposition: Admitted As Inpatient 67 Condition: Serious Clinical Impression: COPD exacerbation, Anxiety and depression, Hypothyroidism - Discharge Information *PRESCRIPTION DRUG MONITORING PROGRAM REVIEWED*: Not Applicable *COPY OF PRESCRIPTION DRUG MONITORING REPORT IN PATIENT STEPHEN: Not Applicable Sepsis Event Note - Evaluation Sepsis Screening Result: No Definite Risk - Focused Exam Vital Signs: Vital Signs Temp Pulse Resp BP Pulse Ox Pulse Ox 11/06/19 21:52 98.5 F 83 20 152/80 H 100 11/06/19 21:42 100 Date Exam was Performed: 11/06/19 Time Exam was Performed: 22:10 - Problem List & Annotations (1) COPD exacerbation SNOMED Code(s): 054856368 Code(s): J44.1 - CHRONIC OBSTRUCTIVE PULMONARY DISEASE W (ACUTE) EXACERBATION Status: Acute Priority: High Current Visit: Yes (2) Atrial fibrillation, currently in sinus rhythm SNOMED Code(s): 124323541, 357459016 Code(s): Z86.79 - PERSONAL HISTORY OF OTHER DISEASES OF THE CIRCULATORY SYSTEM Status: Acute Priority: Low Current Visit: No - Problem List Review Problem List Initiated/Reviewed/Updated: Yes - My Orders Last 24 Hours: My Active Orders 11/06/19 22:02 Supplemental O2 [Oxygen Therapy, ED] [RC] ASDIRECTED - Assessment/Plan Admission H&P: Please use this note as an admission H&P Last 24 Hours: My Active Orders 11/06/19 22:02 Supplemental O2 [Oxygen Therapy, ED] [RC] ASDIRECTED Plan: Will admit Dr. Morris's service with IV steroids and oxygen. Will repeat labs in the AM.
[2019-11-06] MEDS ORDERED: Sodium Chloride 0.9% 10 ML Syringe FLUSH PRN (22:48)
[2019-11-06] MEDS: methylPREDNISolone Sodium Succinate 125 MG/2 ML SDV IVPUSH SCH (23:07)
[2019-11-07] MEDS: Levothyroxine 100 MCG Tab PO SCH (06:03)
[2019-11-07 07:24] LABS: CHLORIDE,CL 97 mEq/L (98-106); SODIUM,NA 135 mEq/L (136-145)
[2019-11-07] MEDS: Albuterol/Ipratropium 3.0-0.5 MG/3 ML Neb Soln NEB SCH ×4 (07:42→19:46)
[2019-11-07] MEDS: Budesonide 0.5 MG/2 ML Neb Susp INH SCH ×2 (07:43→19:46)
[2019-11-07] MEDS: busPIRone 5 MG Tab PO SCH ×2 (07:43→19:44)
[2019-11-07] MEDS: Citalopram 10 MG Tab PO SCH (07:47)
[2019-11-07] MEDS: Famotidine 20 MG Tab PO SCH (07:48)
[2019-11-07] MEDS: Metoprolol Tartrate 50 MG Tab PO SCH ×2 (07:49→19:43)
[2019-11-07] MEDS: FORMOTEROL 20 MCG NEB SCH ×2 (07:50→19:48)
[2019-11-07] MEDS: Apixaban 5 MG Tab PO SCH ×2 (07:50→19:45)
[2019-11-07] MEDS: ROFLUMILAST 500 MCG PO SCH (07:52)
[2019-11-07] MEDS: Tiotropium Inhaler 18 MCG Inhalation Powder Cap Kit of 5 INH SCH (07:58)
[2019-11-07] MEDS ORDERED: Non-Formulary Medication 1 Each (Roflumilast [Daliresp] 500 MCG) PO SCH (08:00)
[2019-11-07] MEDS ORDERED: ESCITALOPRAM OXALATE 10 MG PO SCH (08:00)
[2019-11-07] MEDS ORDERED: Non-Formulary Medication 1 Each (Formoterol [Perforomist] 20 MCG) NEB SCH (08:00)
[2019-11-07] MEDS: Acetaminophen 325 MG Tab PO PRN ×2 (08:34→22:48)
--- NOTE | 2019-11-07 09:09 | PCM.PN ---
- General Info Date of Service: 11/07/19 Admission Dx/Problem (Free Text): COPD Exacerbation Functional Status: Reports: Pain Controlled, Tolerating Diet. Denies: Ambulating - Review of Systems General: Reports: Weakness, Fatigue, Malaise HEENT: Reports: Post Nasal Drip, Rhinitis. Denies: Ear Pain, Sinus Congestion Pulmonary: Reports: Shortness of Breath, Cough, Wheezing Cardiovascular: Denies: Chest Pain, Edema, Lightheadedness Gastrointestinal: Denies: Abdominal Pain, Nausea, Vomiting Genitourinary: Reports: No Symptoms Musculoskeletal: Reports: No Symptoms Skin: Reports: No Symptoms Neurological: Reports: Weakness - Patient Data Vitals - Most Recent: Last Vital Signs Temp 98.0 F 11/07/19 08:00 Pulse 87 11/07/19 08:00 Resp 22 H 11/07/19 08:00 BP 184/90 H 11/07/19 08:00 Pulse Ox 100 11/07/19 08:00 Weight - Most Recent: 151 lb I&O - Last 24 Hours: Intake & Output 11/06/19 11/07/19 11/07/19 22:59 06:59 14:59 Intake Total 100 300 Output Total 200 Balance -100 300 Lab Results Last 24 Hours: Laboratory Results - last 24 hr 11/07/19 11/07/19 Range/Units 06:45 06:45 WBC 3.2 L (5.0-10.0) 10^3/uL RBC 4.16 (4.00-5.50) 10^6/uL Hgb 12.5 (12.0-16.0) g/dL Hct 38.8 (37.0-47.0) % MCV 93.3 (82.0-94.0) fL MCH 30.0 (27.0-32.0) pg MCHC 32.2 L (33.0-38.0) g/dL RDW Coeff of Teod[place] 13.3 (11.0-15.0) % Plt Count 272 (150-400) 10^3/uL Neut % (Auto) 76.8 (35-85) % Lymph % (Auto) 19.2 (10-55) % [place] % (Auto) 3.4 (0-16) % Eos % (Auto) 0.3 (0-5) % Baso % (Auto) 0.3 (0-3) % Neut # (Auto) 2.48 (1.80-7.00) 10^3/uL Lymph # (Auto) 0.62 L (1.00-4.80) 10^3/uL [place] # (Auto) 0.11 (0.00-0.80) 10^3/uL Eos # (Auto) 0.01 (0.00-0.45) 10^3/uL Baso # (Auto) 0.01 10^3/uL Sodium 135 L (136-145) mEq/L Potassium 4.9 (3.5-5.0) mEq/L Chloride 97 L (98-106) mEq/L Carbon Dioxide 30 (21-32) mmol/L BUN 12 (7-18) mg/dL Creatinine 0.8 (0.6-1.0) mg/dL Est Cr Clr Drug Dosing 38.27 mL/min Estimated GFR (MDRD) > 60 (>=60) mL/min Glucose 144 H D (75-99) mg/dL Calcium 8.6 (8.4-10.1) mg/dL Total Bilirubin 0.2 (0.0-1.0) mg/dL AST 17 (15-37) U/L ALT 21 (12-78) U/L Alkaline Phosphatase 87 (46-116) U/L C-Reactive Protein 0.7 (0.2-0.8) mg/dL Total Protein 7.5 (6.4-8.2) g/dL Albumin 3.3 L (3.4-5.0) g/dL Med Orders - Current: Current Medications Acetaminophen (Tylenol) 650 mg PO Q4H PRN PRN Reason: Pain (Mild 1-3)/fever Last Admin: 11/07/19 08:34 Dose: 650 mg Albuterol/Ipratropium (Duoneb 3.0-0.5 Mg/3 Ml) 3 ml NEB QIDRT [facility] Last Admin: 11/07/19 07:42 Dose: 3 ml Apixaban (Eliquis) 5 mg PO BID [facility] Last Admin: 11/07/19 07:50 Dose: 5 mg Budesonide (Pulmicort) 0.5 mg INH BIDRT [facility] Last Admin: 11/07/19 07:43 Dose: 0.5 mg Buspirone HCl (Buspar) 7.5 mg PO BID [facility] Last Admin: 11/07/19 07:43 Dose: 7.5 mg Citalopram Hydrobromide (Celexa) 20 mg PO DAILY [facility] Last Admin: 11/07/19 07:47 Dose: 20 mg Famotidine (Pepcid) 10 mg PO DAILY [facility] Last Admin: 11/07/19 07:48 Dose: 10 mg Levothyroxine Sodium (Synthroid) 100 mcg PO ACBREAKFAST [facility] Last Admin: 11/07/19 06:03 Dose: 100 mcg Methylprednisolone Sodium Succinate (Solu-Medrol) 62.5 mg IVPUSH Q12H [facility] Last Admin: 11/06/19 23:07 Dose: 62.5 mg Metoprolol Tartrate (Lopressor) 75 mg PO BID [facility] Last Admin: 11/07/19 07:49 Dose: 75 mg Nf Med1 Each ( Formoterol [ Perforomist] 20 Mcg) *Pt Own Med 20 mcg NEB BIDRT [facility] Last Admin: 11/07/19 07:50 Dose: 20 mcg Nf Med 1 Each ( Roflumilast [ Daliresp] 500 Mcg)* Pt Own Med 500 mcg PO DAILY [facility] Last Admin: 11/07/19 07:52 Dose: 500 mcg Sodium Chloride (Saline Flush) 10 ml FLUSH ASDIRECTED PRN PRN Reason: Keep Vein Open Last Admin: 11/07/19 08:04 Dose: 10 ml Tiotropium [place] (Spiriva Handihaler) 0 mcg INH DAILY [facility] Last Admin: 11/07/19 07:58 Dose: 1 cap Discontinued Medications Non-Formulary Medication (Escitalopram Oxalate [Escitalopram Oxalate]) 10 mg PO DAILY [facility] Non-Formulary Medication (Formoterol [Perforomist]) 20 mcg NEB BIDRT [facility] Non-Formulary Medication (Roflumilast [Daliresp]) 500 mcg PO DAILY [facility] - Exam Quality Assessment: Supplemental Oxygen General: Alert, Oriented HEENT: Mucous Membr. Moist/[place] Neck: Supple Lungs: Decreased Breath Sounds, Wheezing Cardiovascular: Irregular Rhythm GI/Abdominal Exam: Normal Bowel Sounds, Soft, Non-Tender Extremities: Normal Inspection, No Pedal Edema Skin: Warm, Dry Neurological: No New Focal Deficit Sepsis Event Note - Evaluation Sepsis Screening Result: No Definite Risk - Focused Exam Vital Signs: Vital Signs Temp Pulse Pulse Resp BP BP Pulse Ox 11/07/19 08:00 98.0 F 87 22 H 184/90 H 100 11/07/19 07:49 87 184/96 H 11/07/19 04:00 97.7 F 80 18 152/84 H 99 11/07/19 00:00 98.5 F 72 18 152/80 H 98 11/06/19 22:48 98.5 F 71 18 150/80 H 98 11/06/19 22:02 11/06/19 21:52 98.5 F 83 20 152/80 H 100 11/06/19 21:42 Pulse Ox 11/07/19 08:00 11/07/19 07:49 11/07/19 04:00 11/07/19 00:00 11/06/19 22:48 100 11/06/19 22:02 100 11/06/19 21:52 11/06/19 21:42 100 Date Exam was Performed: 11/07/19 Time Exam was Performed: 09:03 - Problem List & Annotations (1) COPD exacerbation SNOMED Code(s): 058647170 Code(s): J44.1 - CHRONIC OBSTRUCTIVE PULMONARY DISEASE W (ACUTE) EXACERBATION Status: Acute Priority: High Current Visit: Yes - Problem List Review Problem List Initiated/Reviewed/Updated: Yes - My Orders Last 24 Hours: My Active Orders 11/08/19 05:11 BASIC METABOLIC PANEL,BMP [CHEM] AM C-REACTIVE PROTEIN [CHEM] AM CBC WITH AUTO DIFF [HEME] AM - Assessment Assessment:: COPD Exacerbation - Plan Plan:: Patient admits to feeling better than last evening. States able to get in more air. Does continue to have audible wheezing throughout. Oxygen on at 2 liters , oxygen sats 98%-100%. Afebrile. Blood pressure high this am, 184/90. Admits didn't sleep well related to steroids. Aware of necessity of them. Will continue steroids, nebs. Flutter valve. Encourage ambulation if able. Possible discharge home tomorrow if status continues to improve.
[2019-11-07] MEDS: methylPREDNISolone Sodium Succinate 125 MG/2 ML SDV IVPUSH SCH ×2 (10:40→22:45)
[2019-11-07] MEDS ORDERED: Sodium Chloride 0.65% Nasal Spray 45 ML Bottle NAS PRN (20:22)
[2019-11-08] MEDS: Albuterol/Ipratropium 3.0-0.5 MG/3 ML Neb Soln NEB PRN (06:14)
[2019-11-08] MEDS: Levothyroxine 100 MCG Tab PO SCH (06:15)
[2019-11-08 07:08] LABS: CHLORIDE,CL 94 mEq/L (98-106); SODIUM,NA 131 mEq/L (136-145)
[2019-11-08] MEDS: busPIRone 5 MG Tab PO SCH ×2 (07:42→19:39)
[2019-11-08] MEDS: Citalopram 10 MG Tab PO SCH (07:43)
[2019-11-08] MEDS: Famotidine 20 MG Tab PO SCH (07:43)
[2019-11-08] MEDS: Metoprolol Tartrate 50 MG Tab PO SCH ×2 (07:44→19:40)
[2019-11-08] MEDS: Apixaban 5 MG Tab PO SCH ×2 (07:44→19:42)
[2019-11-08] MEDS: methylPREDNISolone Sodium Succinate 125 MG/2 ML SDV IVPUSH SCH ×2 (07:46→19:42)
[2019-11-08] MEDS: ROFLUMILAST 500 MCG PO SCH (07:47)
[2019-11-08] MEDS: Tiotropium Inhaler 18 MCG Inhalation Powder Cap Kit of 5 INH SCH (07:48)
--- NOTE | 2019-11-08 09:11 | PCM.PN ---
- General Info Date of Service: 11/08/19 Admission Dx/Problem (Free Text): COPD Exacerbation Functional Status: Reports: Pain Controlled, Tolerating Diet. Denies: Ambulating - Review of Systems General: Reports: Weakness, Fatigue, Malaise HEENT: Reports: Sinus Congestion, Rhinitis Pulmonary: Reports: Shortness of Breath, Cough, Sputum Cardiovascular: Denies: Chest Pain, Edema, Lightheadedness Gastrointestinal: Denies: Abdominal Pain, Nausea, Vomiting Genitourinary: Reports: No Symptoms Musculoskeletal: Reports: No Symptoms, Shoulder Pain Skin: Reports: No Symptoms Neurological: Reports: Weakness - Patient Data Vitals - Most Recent: Last Vital Signs Temp 99.4 F 11/08/19 07:38 Pulse 100 11/08/19 07:44 Resp 24 H 11/08/19 07:38 BP 155/87 H 11/08/19 07:44 Pulse Ox 97 11/08/19 07:38 Weight - Most Recent: 151 lb I&O - Last 24 Hours: Intake & Output 11/07/19 11/08/19 11/08/19 22:59 06:59 14:59 Intake Total 1300 Output Total 1600 Balance -300 Lab Results Last 24 Hours: Laboratory Results - last 24 hr 11/08/19 11/08/19 Range/Units 06:50 06:50 WBC 6.2 (5.0-10.0) 10^3/uL RBC 4.08 (4.00-5.50) 10^6/uL Hgb 12.3 (12.0-16.0) g/dL Hct 37.8 (37.0-47.0) % MCV 92.6 (82.0-94.0) fL MCH 30.1 (27.0-32.0) pg MCHC 32.5 L (33.0-38.0) g/dL RDW Coeff of Teodora 13.2 (11.0-15.0) % Plt Count 269 (150-400) 10^3/uL Neut % (Auto) 86.4 H (35-85) % Lymph % (Auto) 6.8 L (10-55) % [place] % (Auto) 6.5 (0-16) % Eos % (Auto) 0 (0-5) % Baso % (Auto) 0.3 (0-3) % Neut # (Auto) 5.31 (1.80-7.00) 10^3/uL Lymph # (Auto) 0.42 L (1.00-4.80) 10^3/uL [place] # (Auto) 0.40 (0.00-0.80) 10^3/uL Eos # (Auto) 0.00 (0.00-0.45) 10^3/uL Baso # (Auto) 0.02 10^3/uL Sodium 131 L (136-145) mEq/L Potassium 4.5 (3.5-5.0) mEq/L Chloride 94 L (98-106) mEq/L Carbon Dioxide 29 (21-32) mmol/L BUN 13 (7-18) mg/dL Creatinine 0.7 (0.6-1.0) mg/dL Est Cr Clr Drug Dosing 43.74 mL/min Estimated GFR (MDRD) > 60 (>=60) mL/min Glucose 143 H (75-99) mg/dL Calcium 8.5 (8.4-10.1) mg/dL C-Reactive Protein 0.6 (0.2-0.8) mg/dL Med Orders - Current: Current Medications Acetaminophen (Tylenol) 650 mg PO Q4H PRN PRN Reason: Pain (Mild 1-3)/fever Last Admin: 11/07/19 22:48 Dose: 650 mg Albuterol/Ipratropium (Duoneb 3.0-0.5 Mg/3 Ml) 3 ml NEB QIDRT [facility] Last Admin: 11/07/19 19:46 Dose: 3 ml Albuterol/Ipratropium (Duoneb 3.0-0.5 Mg/3 Ml) 3 ml NEB Q4H PRN PRN Reason: Dyspnea Last Admin: 11/08/19 06:14 Dose: 3 ml Apixaban (Eliquis) 5 mg PO BID [facility] Last Admin: 11/08/19 07:44 Dose: 5 mg Budesonide (Pulmicort) 0.5 mg INH BIDRT [facility] Last Admin: 11/07/19 19:46 Dose: 0.5 mg Buspirone HCl (Buspar) 7.5 mg PO BID [facility] Last Admin: 11/08/19 07:42 Dose: 7.5 mg Ceftriaxone Sodium (Rocephin) 1 gm IVPUSH Q24H [facility] Citalopram Hydrobromide (Celexa) 20 mg PO DAILY [facility] Last Admin: 11/08/19 07:43 Dose: 20 mg Famotidine (Pepcid) 10 mg PO DAILY [facility] Last Admin: 11/08/19 07:43 Dose: 10 mg Azithromycin 500 mg/ Sodium (Chloride) 250 mls @ 250 mls/hr IV Q24H [facility] Levothyroxine Sodium (Synthroid) 100 mcg PO ACBREAKFAST [facility] Last Admin: 11/08/19 06:15 Dose: 100 mcg Methylprednisolone Sodium Succinate (Solu-Medrol) 62.5 mg IVPUSH Q12H [facility] Last Admin: 11/08/19 07:46 Dose: 62.5 mg Metoprolol Tartrate (Lopressor) 75 mg PO BID [facility] Last Admin: 11/08/19 07:44 Dose: 75 mg Nf Med1 Each ( Formoterol [ Perforomist] 20 Mcg) *Pt Own Med 20 mcg NEB BIDRT [facility] Last Admin: 11/07/19 19:48 Dose: 20 mcg Nf Med 1 Each ( Roflumilast [ Daliresp] 500 Mcg)* Pt Own Med 500 mcg PO DAILY [facility] Last Admin: 11/08/19 07:47 Dose: 500 mcg Sodium Chloride (Saline Flush) 10 ml FLUSH ASDIRECTED PRN PRN Reason: Keep Vein Open Last Admin: 11/07/19 08:04 Dose: 10 ml Sodium Chloride ([place] Nasal [place]) 0 ml ANDRE QID PRN PRN Reason: Congestion Last Admin: 11/07/19 20:37 Dose: 1 spray Tiotropium [place] (Spiriva Handihaler) 0 mcg INH DAILY [facility] Last Admin: 11/08/19 07:48 Dose: 1 cap Discontinued Medications Methylprednisolone Sodium Succinate (Solu-Medrol) 62.5 mg IVPUSH Q12H [facility] Last Admin: 11/07/19 22:45 Dose: 62.5 mg Non-Formulary Medication (Escitalopram Oxalate [Escitalopram Oxalate]) 10 mg PO DAILY [facility] Non-Formulary Medication (Formoterol [Perforomist]) 20 mcg NEB BIDRT [facility] Non-Formulary Medication (Roflumilast [Daliresp]) 500 mcg PO DAILY [facility] - Exam General: Alert, Oriented HEENT: Mucous Membr. Moist/[place] Neck: Supple Lungs: Decreased Breath Sounds, Crackles, Wheezing Cardiovascular: Irregular Rhythm GI/Abdominal Exam: Normal Bowel Sounds, Soft, Non-Tender Extremities: Normal Inspection, No Pedal Edema Skin: Warm, Dry Neurological: No New Focal Deficit Sepsis Event Note - Evaluation Sepsis Screening Result: No Definite Risk - Focused Exam Vital Signs: Vital Signs Temp Pulse Pulse Resp BP BP Pulse Ox 11/08/19 07:44 100 155/87 H 11/08/19 07:38 99.4 F 100 24 H 155/87 H 97 11/08/19 04:00 98.1 F 67 21 H 144/50 H 95 11/08/19 00:00 98.8 F 76 20 163/83 H 100 Date Exam was Performed: 11/08/19 Time Exam was Performed: 09:05 - Problem List & Annotations (1) COPD exacerbation SNOMED Code(s): 628572548 Code(s): J44.1 - CHRONIC OBSTRUCTIVE PULMONARY DISEASE W (ACUTE) EXACERBATION Status: Acute Priority: High Current Visit: Yes - Problem List Review Problem List Initiated/Reviewed/Updated: Yes - My Orders Last 24 Hours: My Active Orders 11/08/19 09:00 Azithromycin [Zithromax] 500 mg Sodium Chloride 0.9% [Normal Saline] 250 ml IV Q24H cefTRIAXone [Rocephin] 1 gm IVPUSH Q24H - Assessment Assessment:: COPD Exacerbation - Plan Plan:: Patient admits to feeling better than last evening. States able to get in more air. Does continue to have audible wheezing throughout. Oxygen on at 2 liters , oxygen sats 98%-100%. Afebrile. Blood pressure high this am, 184/90. Admits didn't sleep well related to steroids. Aware of necessity of them. Will continue steroids, nebs. Flutter valve. Encourage ambulation if able. Possible discharge home tomorrow if status continues to improve. 11-07-2019 Patient has had intermittent breathing concerns during the night. Oxygen sats 98%. Unable to tolerate activity well due to shortness of breath. Blood pressure 155/87. Temp 99.4. Labs normal WBC 6.2, sodium 131, CRP negative. Lung sounds diminished, wheezing, crackles throughout. Will continue steroids, nebs. Add Zithromax and Rocephin due to lung status. Repeat labs in am.
[2019-11-08] MEDS: Budesonide 0.5 MG/2 ML Neb Susp INH SCH ×2 (09:46→19:38)
[2019-11-08] MEDS: FORMOTEROL 20 MCG NEB SCH ×2 (09:46→19:45)
[2019-11-08] MEDS: Azithromycin 500 MG in Sodium Chloride 0.9% 250 ML IV SCH (09:48)
[2019-11-08] MEDS: cefTRIAXone 1 GM Vial IVPUSH SCH (09:50)
[2019-11-08] MEDS: Albuterol/Ipratropium 3.0-0.5 MG/3 ML Neb Soln NEB SCH ×4 (10:01→19:44)
[2019-11-09] MEDS: Acetaminophen 325 MG Tab PO PRN (00:31)
[2019-11-09] MEDS: Albuterol/Ipratropium 3.0-0.5 MG/3 ML Neb Soln NEB PRN ×7 (00:32→09:56)
[2019-11-09] MEDS: Levothyroxine 100 MCG Tab PO SCH (06:40)
[2019-11-09] MEDS: Famotidine 20 MG Tab PO SCH (07:33)
[2019-11-09] MEDS: busPIRone 5 MG Tab PO SCH (07:34)
[2019-11-09] MEDS: Metoprolol Tartrate 50 MG Tab PO SCH (07:38)
[2019-11-09] MEDS: Budesonide 0.5 MG/2 ML Neb Susp INH SCH (07:40)
[2019-11-09] MEDS: Citalopram 10 MG Tab PO SCH (07:40)
[2019-11-09] MEDS: Apixaban 5 MG Tab PO SCH (07:40)
[2019-11-09] MEDS: Albuterol/Ipratropium 3.0-0.5 MG/3 ML Neb Soln NEB SCH (07:40)
[2019-11-09] MEDS: methylPREDNISolone Sodium Succinate 125 MG/2 ML SDV IVPUSH SCH (07:42)
[2019-11-09] MEDS: Tiotropium Inhaler 18 MCG Inhalation Powder Cap Kit of 5 INH SCH (07:46)
[2019-11-09] MEDS: FORMOTEROL 20 MCG NEB SCH (07:46)
[2019-11-09] MEDS: ROFLUMILAST 500 MCG PO SCH (07:47)
[2019-11-09] MEDS: cefTRIAXone 1 GM Vial IVPUSH SCH (08:00)
[2019-11-09] MEDS: Azithromycin 500 MG in Sodium Chloride 0.9% 250 ML IV SCH (08:00)
[2019-11-09] MEDS ORDERED: ALPRAZolam 0.25 MG Tab PO PRN (08:37)
[2019-11-09 09:00] LABS: BICARBONATE,ARTERIAL 27.1 mm/L (22.0-26.0); O2 DELIVERY DEVICE AEROSOL MASK; O2 SATURATION ARTERIAL 100 % (95-98); PCO2 ARTERIAL 60 mm/Hg0 (35-45); PO2 ARTERIAL 232 mm/Hg (80-100)
[2019-11-09] MEDS ORDERED: LORazepam 2 MG/ML Syringe IVPUSH STA (09:04)
[2019-11-09] MEDS ORDERED: LORazepam 2 MG/ML Syringe ONE (09:10)
--- NOTE | 2019-11-09 09:22 | PCM.DCSUM1 ---
Discharge Summary - Hospital Course Free Text/Narrative:: Patient presented to ER with respiratory distress/COPD Exacerbation. Had been given steroids in the clinic earlier in the day but breathing worsened over the evening. Was admitted and started on IV steroids, neb treatments and oxygen. Labs noted normal WBC 3.2. CRP 0.7. Sodium 135. Other labs normal. Chest xray hyperinflation from COPD, no infiltrate. Diagnosis: Stroke: No Modified [place]i Scale: No Symptoms at All Modified [place] Scale Score: 0 - Discharge Data Discharge Date: 11/09/19 Discharge Disposition: DC/Tfer to Acute Hospital 02 Condition: Serious - Referral to Home Health Primary Care Physician: PCP None - Discharge Diagnosis/Problem(s) (1) COPD exacerbation SNOMED Code(s): 644603971 ICD Code: J44.1 - CHRONIC OBSTRUCTIVE PULMONARY DISEASE W (ACUTE) EXACERBATION Status: Acute Priority: High - Patient Summary/Data Complications: respiratory distress Hospital Course: Patient having more difficulty this am, obvious respiratory distress. Given consecutive nebs without much relief. Xanax PO and Ativan IV given. ABGs done , CO2 60, pH 7.26. PO2 is high, has been on high flow oxygen with consecutive nebs. Patient very anxious. Xanax 0.25 mg given, Ativan 0.5 mg IV given. Oxygen sats 96%. Lung sounds tight, wheezing throughout, crackles. Labs done. WBC 8.2. Troponin negative. proBNP 5209. Lasix 40 mg IV given. Maldonado cath placed. Sodium 129. Contacted [facility], spoke with Dr. Frankel. Agreed to accept the patient in transfer. [facility] called. Family aware of need for transfer. Is full code. May require intubation. Time spent in critical care with patient 60 minutes. - Patient Instructions Other/Special Instructions[facility] - Discharge Plan *PRESCRIPTION DRUG MONITORING PROGRAM REVIEWED*: Not Applicable *COPY OF PRESCRIPTION DRUG MONITORING REPORT IN PATIENT STEPHEN: Not Applicable Home Medications: Home Meds Albuterol Sulfate 3 ml INH DAILY 02/04/15 [History] Levothyroxine [Synthroid] 100 mcg PO DAILY 02/05/15 [History] Tiotropium [Spiriva HandiHaler] 2 puff INH DAILY 02/05/15 [History] Beta-Carotene(A)-Vits C,E/Mins [Vision Vitamins] 2 tab PO DAILY 04/10/15 [ History] Calcium Carb, Citrate/Vit D3 [Calcium + D3 ER Tablet] 2 tab PO DAILY 04/10/15 [ History] Garlic [Garlique] 1 tab PO DAILY 04/10/15 [History] Budesonide [Pulmicort] 0.5 mg INH BID 07/31/16 [History] Formoterol [Perforomist] 20 mcg NEB BIDRT 07/31/16 [History] Roflumilast [Daliresp] 500 mcg PO DAILY 07/31/16 [History] Denosumab [Prolia] 60 mg SUBCUT Q6M 03/08/17 [History] Acetaminophen [Tylenol Extra Strength] 500 mg PO Q4HR PRN 03/28/19 [History] Albuterol [Ventolin 2 MG/5 ML] 1 - 2 puff INH Q4HR PRN 03/28/19 [History] Betamethasone Dipropionate [Diprosone 0.05% Oint] 1 applic TOP BID PRN 03/28/19 [History] Fluticasone Propionate [Flonase Allergy Relief] 2 each ANDRE DAILY PRN 03/28/19 [ History] Escitalopram Oxalate 10 mg PO DAILY 09/02/19 [History] Apixaban [Eliquis] 5 mg PO BID 11/06/19 [History] Famotidine [Pepcid] 10 mg PO DAILY 11/06/19 [History] Metoprolol Tartrate 75 mg PO BID 11/06/19 [History] busPIRone HCl [Buspirone HCl] 7.5 mg PO BID 11/06/19 [History] Patient Handouts: Chronic Obstructive Pulmonary Disease Exacerbation Forms: ED Department Discharge Referrals: PCP,None [Primary Care Provider] - - Discharge Summary/Plan Comment DC Time >30 min.: Yes - General Info Date of Service: 11/09/19 Admission Dx/Problem (Free Text: COPD Exacerbation Functional Status: Reports: Pain Controlled. Denies: Tolerating Diet, Ambulating - Review of Systems General: Reports: Weakness, Fatigue, Malaise HEENT: Reports: No Symptoms Pulmonary: Reports: Shortness of Breath, Cough, Wheezing Cardiovascular: Denies: Chest Pain, Edema, Lightheadedness Gastrointestinal: Denies: Abdominal Pain, Nausea, Vomiting Genitourinary: Reports: Other (catheter placed with clear yellow urine) Musculoskeletal: Reports: No Symptoms Skin: Reports: No Symptoms Neurological: Reports: No Symptoms Psychiatric: Reports: Anxiety - Patient Data Vitals - Most Recent: Last Vital Signs Temp 99 F 11/09/19 07:41 Pulse 132 H 11/09/19 07:41 Resp 18 11/09/19 07:41 BP 168/97 H 11/09/19 07:41 Pulse Ox 98 11/09/19 07:41 Weight - Most Recent: 151 lb Lab Results - Last 24 hrs: Laboratory Results - last 24 hr 11/09/19 11/09/19 11/09/19 Range/Units 08:40 08:40 08:53 WBC 8.2 (5.0-10.0) 10^3/uL RBC 4.00 (4.00-5.50) 10^6/uL Hgb 12.2 (12.0-16.0) g/dL Hct 37.8 (37.0-47.0) % MCV 94.5 H (82.0-94.0) fL MCH 30.5 (27.0-32.0) pg MCHC 32.3 L (33.0-38.0) g/dL RDW Coeff of Teodora 13.4 (11.0-15.0) % Plt Count 269 (150-400) 10^3/uL Neut % (Auto) 72.8 (35-85) % Lymph % (Auto) 13.4 (10-55) % [place] % (Auto) 13.7 (0-16) % Eos % (Auto) 0 (0-5) % Baso % (Auto) 0.1 (0-3) % Neut # (Auto) 5.93 (1.80-7.00) 10^3/uL Lymph # (Auto) 1.09 (1.00-4.80) 10^3/uL [place] # (Auto) 1.12 H (0.00-0.80) 10^3/uL Eos # (Auto) 0.00 (0.00-0.45) 10^3/uL Baso # (Auto) 0.01 10^3/uL ABG pH 7.26 L (7.35-7.45) ABG pCO2 60 H (35-45) mm/Hg0 ABG pO2 232 H (80-100) mm/Hg ABG HCO3 27.1 H (22.0-26.0) mm/L ABG O2 Saturation 100 H (95-98) % ABG Base Excess 0.0 (-2.0-3.0) O2 Delivery Device Aerosol mask Oxygen Flow Rate 6.0 Sodium 129 L (136-145) mEq/L Potassium 4.9 (3.5-5.0) mEq/L Chloride 93 L (98-106) mEq/L Carbon Dioxide 29 (21-32) mmol/L BUN 20 H D (7-18) mg/dL Creatinine 0.9 (0.6-1.0) mg/dL Est Cr Clr Drug Dosing 34.02 mL/min Estimated GFR (MDRD) 60 (>=60) mL/min Glucose 147 H (75-99) mg/dL Calcium 8.4 (8.4-10.1) mg/dL C-Reactive Protein 0.6 (0.2-0.8) mg/dL Med Orders - Current: Current Medications Acetaminophen (Tylenol) 650 mg PO Q4H PRN PRN Reason: Pain (Mild 1-3)/fever Last Admin: 11/09/19 00:31 Dose: 650 mg Albuterol/Ipratropium (Duoneb 3.0-0.5 Mg/3 Ml) 3 ml NEB QIDRT [facility] Last Admin: 11/09/19 07:40 Dose: 3 ml Albuterol/Ipratropium (Duoneb 3.0-0.5 Mg/3 Ml) 3 ml NEB Q4H PRN PRN Reason: Dyspnea Last Admin: 11/09/19 09:03 Dose: 3 ml Alprazolam (Xanax) 0.25 mg PO Q4H PRN PRN Reason: Anxiety Last Admin: 11/09/19 08:43 Dose: 0.25 mg Apixaban (Eliquis) 5 mg PO BID [facility] Last Admin: 11/09/19 07:40 Dose: 5 mg Budesonide (Pulmicort) 0.5 mg INH BIDRT [facility] Last Admin: 11/09/19 07:40 Dose: 0.5 mg Buspirone HCl (Buspar) 7.5 mg PO BID [facility] Last Admin: 11/09/19 07:34 Dose: 7.5 mg Ceftriaxone Sodium (Rocephin) 1 gm IVPUSH Q24H [facility] Last Admin: 11/09/19 08:00 Dose: 1 gm Citalopram Hydrobromide (Celexa) 20 mg PO DAILY [facility] Last Admin: 11/09/19 07:40 Dose: 20 mg Famotidine (Pepcid) 10 mg PO DAILY [facility] Last Admin: 11/09/19 07:33 Dose: 10 mg Azithromycin 500 mg/ Sodium (Chloride) 250 mls @ 250 mls/hr IV Q24H [facility] Last Admin: 11/09/19 08:00 Dose: 250 mls/hr Levothyroxine Sodium (Synthroid) 100 mcg PO ACBREAKFAST [facility] Last Admin: 11/09/19 06:40 Dose: 100 mcg Methylprednisolone Sodium Succinate (Solu-Medrol) 62.5 mg IVPUSH Q12H [facility] Last Admin: 11/09/19 07:42 Dose: 62.5 mg Metoprolol Tartrate (Lopressor) 75 mg PO BID [facility] Last Admin: 11/09/19 07:38 Dose: 75 mg Nf Med1 Each ( Formoterol [ Perforomist] 20 Mcg) *Pt Own Med 20 mcg NEB BIDRT [facility] Last Admin: 11/09/19 07:46 Dose: 20 mcg Nf Med 1 Each ( Roflumilast [ Daliresp] 500 Mcg)* Pt Own Med 500 mcg PO DAILY [facility] Last Admin: 11/09/19 07:47 Dose: 500 mcg Sodium Chloride (Saline Flush) 10 ml FLUSH ASDIRECTED PRN PRN Reason: Keep Vein Open Last Admin: 11/07/19 08:04 Dose: 10 ml Sodium Chloride (Garza Nasal [place]) 0 ml ANDRE QID PRN PRN Reason: Congestion Last Admin: 11/07/19 20:37 Dose: 1 spray Tiotropium [place] (Spiriva Handihaler) 0 mcg INH DAILY [facility] Last Admin: 11/09/19 07:46 Dose: 1 cap Discontinued Medications Lorazepam (Ativan) Confirm Administered Dose 2 mg .ROUTE .STK-MED ONE Stop: 11/09/19 09:11 Last Admin: 11/09/19 09:07 Dose: Not Given Lorazepam (Ativan) 0.5 mg IVPUSH [address]IME [facility] Stop: 11/09/19 09:05 Last Admin: 11/09/19 09:04 Dose: 0.5 mg Methylprednisolone Sodium Succinate (Solu-Medrol) 62.5 mg IVPUSH Q12H [facility] Last Admin: 11/07/19 22:45 Dose: 62.5 mg Non-Formulary Medication (Escitalopram Oxalate [Escitalopram Oxalate]) 10 mg PO DAILY [facility] Non-Formulary Medication (Formoterol [Perforomist]) 20 mcg NEB BIDRT [facility] Non-Formulary Medication (Roflumilast [Daliresp]) 500 mcg PO DAILY [facility] - Exam Quality Assessment: Reports: Supplemental Oxygen General: Reports: Alert, Oriented, Severe Distress HEENT: Reports: Mucous Membr. Moist/[place] Neck: Reports: Supple Lungs: Reports: Decreased Breath Sounds, Crackles, Wheezing Cardiovascular: Reports: Tachycardia GI/Abdominal Exam: Normal Bowel Sounds, Soft, Non-Tender Extremities: Normal Inspection, No Pedal Edema Skin: Reports: Warm, Dry Neurological: Reports: No New Focal Deficit
[2019-11-09] MEDS ORDERED: Furosemide 40 MG/4 ML VIAL IVPUSH ONE (09:30)
[2019-11-09 09:50] VITALS: BP 129/67; PULSE 167
== END 2019-11-09 11:15 | DRG 192 ==
LOC: CC.ED 21:39 → CC.MS 22:21 → INTOOBSV 22:21 → OBSVTOIN 22:21 → UNDOADMOB 22:21 → OBSVTOIN 22:34 → CC.MS 22:34
PROVIDERS: ADMIT Physician Assistant Medical; ATTEND Family Medicine
DX: J44.1 Chronic obstructive pulmonary disease with (acute) exacerbation (principal); I48.91 Unspecified atrial fibrillation; F32.9 Major depressive disorder, single episode, unspecified; I10 Essential (primary) hypertension; H91.90 Unspecified hearing loss, unspecified ear; M81.0 Age-related osteoporosis without current pathological fracture; F41.9 Anxiety disorder, unspecified; E03.9 Hypothyroidism, unspecified; Z90.49 Acquired absence of other specified parts of digestive tract; Z99.81 Dependence on supplemental oxygen; Z88.2 Allergy status to sulfonamides; Z79.890 Hormone replacement therapy; Z79.01 Long term (current) use of anticoagulants; Z79.899 Other long term (current) drug therapy; Z79.51 Long term (current) use of inhaled steroids; Z98.49 Cataract extraction status, unspecified eye; Z87.891 Personal history of nicotine dependence
CPT/HCPCS: 36415; 36600; 51702; 80048; 80053; 82803; 83880; 84484; 85025; 86140; 93005; 94640; 94644; 99285; A9270-GY; J0456; J0696; J1940; J2060; J2930; J7050; J7620-GY

== ENCOUNTER 2020-11-07 10:30 | Inpatient (IN) | payer MEDICARE, BC ==
[2020-11-07 11:41] LABS: CHLORIDE,CL 95 mEq/L (98-106); SODIUM,NA 132 mEq/L (136-145)
[2020-11-07] MEDS ORDERED: Sodium Chloride 0.9% 10 ML Syringe FLUSH PRN (13:42)
[2020-11-07] MEDS ORDERED: Diltiazem 25 MG/5 ML SDV IVPUSH STA ×2 (13:46→18:22)
[2020-11-07] MEDS ORDERED: Pantoprazole 40 MG Vial IVPUSH ONE (14:00)
[2020-11-07] MEDS ORDERED: LIDOCAINE TP PRN (15:35)
[2020-11-07] MEDS ORDERED: CLOBETASOL TOP PRN (15:45)
[2020-11-07] MEDS ORDERED: NEBULIZER ACCESSORIES INH SCH (15:45)
[2020-11-07] MEDS ORDERED: Lidocaine 5% 700 MG Patch TOP PRN (17:14)
[2020-11-07] MEDS: Diltiazem IR 30 MG Tab PO SCH ×2 (17:33→23:07)
[2020-11-07] MEDS: busPIRone 5 MG Tab PO SCH (19:54)
[2020-11-07] MEDS: Metoprolol Tartrate 25 MG Tab PO SCH (19:54)
[2020-11-07] MEDS: Apixaban 5 MG Tab PO SCH (19:54)
[2020-11-07] MEDS: Acetaminophen 500 MG Tab PO PRN (19:54)
[2020-11-07] MEDS: Budesonide 0.5 MG/2 ML Neb Susp INH SCH ×2 (19:54→19:55)
[2020-11-07] MEDS: FORMOTEROL 20 MCG INH SCH (19:57)
[2020-11-07] MEDS ORDERED: Non-Formulary Medication 1 Each (Formoterol [Perforomist] 20 MCG) NEB SCH (20:00)
[2020-11-07] MEDS: ALPRAZolam 0.25 MG Tab PO PRN (20:35)
[2020-11-08] MEDS: Albuterol 8 GM Inhaler INH PRN (01:16)
[2020-11-08] MEDS: Diltiazem IR 30 MG Tab PO SCH ×4 (05:27→19:56)
[2020-11-08] MEDS: Levothyroxine 100 MCG Tab PO SCH (06:31)
[2020-11-08] MEDS: ALPRAZolam 0.25 MG Tab PO PRN ×2 (07:26→16:43)
[2020-11-08] MEDS: Acetaminophen 500 MG Tab PO PRN ×2 (07:26→16:43)
[2020-11-08] MEDS: busPIRone 5 MG Tab PO SCH ×2 (07:27→19:53)
[2020-11-08] MEDS: Beta-Carotene (Vitamin A) w/Vitamin C & E plus Minerals Tab PO SCH (07:28)
[2020-11-08] MEDS: SPIRIVA RESPIMAT INH SCH (07:29)
[2020-11-08] MEDS: Apixaban 5 MG Tab PO SCH ×2 (07:29→19:53)
[2020-11-08] MEDS: Metoprolol Tartrate 25 MG Tab PO SCH ×2 (07:29→19:55)
[2020-11-08] MEDS: FORMOTEROL 20 MCG INH SCH ×2 (07:32→19:53)
[2020-11-08] MEDS: ESCITALOPRAM OXALATE 20 MG PO SCH (07:32)
[2020-11-08] MEDS: ROFLUMILAST 500 MCG PO SCH (07:33)
[2020-11-08] MEDS: Pantoprazole 40 MG Vial IVPUSH SCH ×2 (07:35→19:56)
[2020-11-08] MEDS: Budesonide 0.5 MG/2 ML Neb Susp INH SCH ×3 (07:37→19:56)
[2020-11-08] MEDS: Albuterol 0.083% 2.5 MG/3 ML Neb Soln INH SCH (07:37)
[2020-11-08] MEDS: Lidocaine 5% 700 MG Patch TOP SCH (09:02)
[2020-11-08] MEDS: Simethicone 80 MG Tab.Chew PO PRN ×3 (09:05→17:00)
--- NOTE | 2020-11-08 09:55 | PCM.PN ---
- General Info Date of Service: 11/08/20 Admission Dx/Problem (Free Text): Atrial Fibrillation with RVR CHF Subjective Update: Radha is an 85 yo female who was admitted to the hospital yesterday with Afib with RVR. Patient had been short of breath for the last two days. She has been living a sedentary lifestyle after suffering T7 compression fracture on the 17 of October. Was recently started on prednisone on the 04 of November. She admits she has been having a productive cough the last few days as well. Admits while at rest she was feeling well until she tried ambulation. Did notice with every time she tried getting up and walking her heart rate would increase. Patient has been on oxygen via nasal canula of 2.5 L/min. Oxygen saturations were monitored at home and did maintain in the high 90's. Patient underwent thorough work up yesterday and was started on Cardizem. 11/08/2020 Patient states she continues to feel short of breath with ambulation and weak. While at rest she doesn't feel short of breath. Admits she would like something for gas buildup. Continues to have chronic back pain and requesting back brace. - Review of Systems General: Reports: Weakness HEENT: Reports: No Symptoms Pulmonary: Reports: Shortness of Breath (only with ambulation) Cardiovascular: Reports: Palpitations. Denies: Chest Pain, Edema Gastrointestinal: Reports: No Symptoms Genitourinary: Reports: No Symptoms Musculoskeletal: Reports: Back Pain (known T7 subacute compression fracture. ) Neurological: Reports: No Symptoms Psychiatric: Reports: No Symptoms - Patient Data Vitals - Most Recent: Last Vital Signs Temp 97.6 F 11/08/20 07:49 Pulse 97 11/08/20 07:49 Resp 20 11/08/20 07:49 BP 161/98 H 11/08/20 07:49 Pulse Ox 95 11/08/20 07:49 Weight - Most Recent: 151 lb I&O - Last 24 Hours: Intake & Output 11/07/20 11/08/20 11/08/20 22:59 06:59 14:59 Intake Total 100 300 Output Total 350 700 Balance -250 -400 Lab Results Last 24 Hours: Laboratory Results - last 24 hr 11/07/20 11/07/20 11/07/20 Range/Units 10:33 10:59 10:59 WBC 10.0 (5.0-10.0) 10^3/uL RBC 3.73 L (4.00-5.50) 10^6/uL Hgb 11.6 L (12.0-16.0) g/dL Hct 35.7 L (37.0-47.0) % MCV 95.7 H (82.0-94.0) fL MCH 31.1 (27.0-32.0) pg MCHC 32.5 L (33.0-38.0) g/dL RDW Coeff of Teodora 13.4 (11.0-15.0) % Plt Count 336 (150-400) 10^3/uL Neut % (Auto) 92.0 H (35-85) % Lymph % (Auto) 4.4 L (10-55) % [place] % (Auto) 3.4 (0-16) % Eos % (Auto) 0.1 (0-5) % Baso % (Auto) 0.1 (0-3) % Neut # (Auto) 9.21 H (1.80-7.00) 10^3/uL Lymph # (Auto) 0.44 L (1.00-4.80) 10^3/uL [place] # (Auto) 0.34 (0.00-0.80) 10^3/uL Eos # (Auto) 0.01 (0.00-0.45) 10^3/uL Baso # (Auto) 0.01 10^3/uL D-Dimer, Quantitative (0.00-0.50) Sodium 132 L (136-145) mEq/L Potassium 4.8 (3.5-5.0) mEq/L Chloride 95 L (98-106) mEq/L Carbon Dioxide 32 (21-32) mmol/L BUN 21 H (7-18) mg/dL Creatinine 1.0 (0.6-1.0) mg/dL Est Cr Clr Drug Dosing TNP Estimated GFR (MDRD) 53 L (>=60) mL/min Glucose 146 H D (75-99) mg/dL Calcium 10.1 (8.4-10.1) mg/dL Total Bilirubin 0.3 (0.0-1.0) mg/dL AST 18 (15-37) U/L ALT 31 (12-78) U/L Alkaline Phosphatase 124 H (46-116) U/L Lactate Dehydrogenase 188 (100-190) U/L Creatine Kinase 41 (21-215) U/L Troponin I 0.021 (0.00-0.06) ng/mL C-Reactive Protein 5.2 H (0.2-0.8) mg/dL NT-Pro-B Natriuret Pep (0-1000) pg/mL Total Protein 7.7 (6.4-8.2) g/dL Albumin 3.3 L (3.4-5.0) g/dL Urine Color (YELLOW) Urine Appearance (CLEAR) Urine pH (4.5-8.0) Ur Specific [place] (1.003-1.020) Urine Protein (NEGATIVE) mg/dL Urine Glucose (UA) (NEGATIVE) mg/dL Urine Ketones (NEGATIVE) mg/dL Urine Occult Blood (NEGATIVE) Urine Nitrite (NEGATIVE) Urine Bilirubin (NEGATIVE) Urine Urobilinogen (0.2-1.0) EU/dL Ur Leukocyte Esterase (NEGATIVE) Urine RBC (0-5) /HPF Urine WBC (0-5) /HPF Ur Squamous Epith Cells (NOT SEEN) /HPF SARS CoV-2 RNA Rapid KRISTINA Negative (NEGATIVE) 11/07/20 11/07/20 11/07/20 Range/Units 10:59 10:59 13:18 WBC (5.0-10.0) 10^3/uL RBC (4.00-5.50) 10^6/uL Hgb (12.0-16.0) g/dL Hct (37.0-47.0) % MCV (82.0-94.0) fL MCH (27.0-32.0) pg MCHC (33.0-38.0) g/dL RDW Coeff of Teodora (11.0-15.0) % Plt Count (150-400) 10^3/uL Neut % (Auto) (35-85) % Lymph % (Auto) (10-55) % [place] % (Auto) (0-16) % Eos % (Auto) (0-5) % Baso % (Auto) (0-3) % Neut # (Auto) (1.80-7.00) 10^3/uL Lymph # (Auto) (1.00-4.80) 10^3/uL [place] # (Auto) (0.00-0.80) 10^3/uL Eos # (Auto) (0.00-0.45) 10^3/uL Baso # (Auto) 10^3/uL D-Dimer, Quantitative 0.27 (0.00-0.50) Sodium (136-145) mEq/L Potassium (3.5-5.0) mEq/L Chloride (98-106) mEq/L Carbon Dioxide (21-32) mmol/L BUN (7-18) mg/dL Creatinine (0.6-1.0) mg/dL Est Cr Clr Drug Dosing Estimated GFR (MDRD) (>=60) mL/min Glucose (75-99) mg/dL Calcium (8.4-10.1) mg/dL Total Bilirubin (0.0-1.0) mg/dL AST (15-37) U/L ALT (12-78) U/L Alkaline Phosphatase (46-116) U/L Lactate Dehydrogenase (100-190) U/L Creatine Kinase (21-215) U/L Troponin I (0.00-0.06) ng/mL C-Reactive Protein (0.2-0.8) mg/dL NT-Pro-B Natriuret Pep 8352 H (0-1000) pg/mL Total Protein (6.4-8.2) g/dL Albumin (3.4-5.0) g/dL Urine Color Yellow (YELLOW) Urine Appearance Slightly cloudy (CLEAR) Urine pH 6.0 (4.5-8.0) Ur Specific [place] 1.025 H (1.003-1.020) Urine Protein Negative (NEGATIVE) mg/dL Urine Glucose (UA) Negative (NEGATIVE) mg/dL Urine Ketones Negative (NEGATIVE) mg/dL Urine Occult Blood Trace-intact H (NEGATIVE) Urine Nitrite Negative (NEGATIVE) Urine Bilirubin Negative (NEGATIVE) Urine Urobilinogen 0.2 (0.2-1.0) EU/dL Ur Leukocyte Esterase Negative (NEGATIVE) Urine RBC 0-5 (0-5) /HPF Urine WBC 0-5 (0-5) /HPF Ur Squamous Epith Cells Occasional H (NOT SEEN) /HPF SARS CoV-2 RNA Rapid KRISTINA (NEGATIVE) 01/15/21 01/15/21 01/15/21 Range/Units 07:00 07:00 07:00 WBC 8.2 (5.0-10.0) 10^3/uL RBC 3.46 L (4.00-5.50) 10^6/uL Hgb 10.8 L (12.0-16.0) g/dL Hct 33.1 L (37.0-47.0) % MCV 95.7 H (82.0-94.0) fL MCH 31.2 (27.0-32.0) pg MCHC 32.6 L (33.0-38.0) g/dL RDW Coeff of Teodora 13.2 (11.0-15.0) % Plt Count 314 (150-400) 10^3/uL Neut % (Auto) 74.3 (35-85) % Lymph % (Auto) 12.5 (10-55) % [place] % (Auto) 12.9 (0-16) % Eos % (Auto) 0.2 (0-5) % Baso % (Auto) 0.1 (0-3) % Neut # (Auto) 6.05 (1.80-7.00) 10^3/uL Lymph # (Auto) 1.02 (1.00-4.80) 10^3/uL [place] # (Auto) 1.05 H (0.00-0.80) 10^3/uL Eos # (Auto) 0.02 (0.00-0.45) 10^3/uL Baso # (Auto) 0.01 10^3/uL D-Dimer, Quantitative (0.00-0.50) Sodium 133 L (136-145) mEq/L Potassium 3.9 (3.5-5.0) mEq/L Chloride 96 L (98-106) mEq/L Carbon Dioxide 34 H (21-32) mmol/L BUN 18 (7-18) mg/dL Creatinine 0.9 (0.6-1.0) mg/dL Est Cr Clr Drug Dosing 40.18 Estimated GFR (MDRD) 60 (>=60) mL/min Glucose 99 D (75-99) mg/dL Calcium 9.5 (8.4-10.1) mg/dL Total Bilirubin 0.4 (0.0-1.0) mg/dL AST 16 (15-37) U/L ALT 29 (12-78) U/L Alkaline Phosphatase 111 (46-116) U/L Lactate Dehydrogenase (100-190) U/L Creatine Kinase 26 (21-215) U/L Troponin I 0.017 (0.00-0.06) ng/mL C-Reactive Protein (0.2-0.8) mg/dL NT-Pro-B Natriuret Pep 5753 H (0-1000) pg/mL Total Protein 6.8 (6.4-8.2) g/dL Albumin 2.9 L (3.4-5.0) g/dL Urine Color (YELLOW) Urine Appearance (CLEAR) Urine pH (4.5-8.0) Ur Specific [place] (1.003-1.020) Urine Protein (NEGATIVE) mg/dL Urine Glucose (UA) (NEGATIVE) mg/dL Urine Ketones (NEGATIVE) mg/dL Urine Occult Blood (NEGATIVE) Urine Nitrite (NEGATIVE) Urine Bilirubin (NEGATIVE) Urine Urobilinogen (0.2-1.0) EU/dL Ur Leukocyte Esterase (NEGATIVE) Urine RBC (0-5) /HPF Urine WBC (0-5) /HPF Ur Squamous Epith Cells (NOT SEEN) /HPF SARS CoV-2 RNA Rapid KRISTINA (NEGATIVE) Med Orders - Current: Current Medications Acetaminophen (Tylenol Extra Strength) 500 mg PO Q6H PRN PRN Reason: Pain Last Admin: 11/08/20 07:26 Dose: 500 mg Documented by: Albuterol (Ventolin Hfa) 0 gm INH Q4H PRN PRN Reason: Wheezing Last Admin: 11/08/20 01:16 Dose: 2 puff Documented by: Albuterol (Proventil Neb Soln) 2.5 mg INH DAILY [facility] Last Admin: 11/08/20 07:37 Dose: 2.5 mg Documented by: Alprazolam (Xanax) 0.25 mg PO Q8H PRN PRN Reason: Anxiety Last Admin: 11/08/20 07:26 Dose: 0.25 mg Documented by: Apixaban (Eliquis) 5 mg PO BID [facility] Last Admin: 11/08/20 07:29 Dose: 5 mg Documented by: Budesonide (Pulmicort) 0.5 mg INH BID [facility] Last Admin: 11/08/20 07:37 Dose: 0.5 mg Documented by: Buspirone HCl (Buspar) 10 mg PO BID [facility] Last Admin: 11/08/20 07:27 Dose: 10 mg Documented by: Diltiazem HCl (Cardizem) 60 mg PO Q6H [facility] Last Admin: 11/08/20 08:38 Dose: 60 mg Documented by: Levothyroxine Sodium (Synthroid) 100 mcg PO ACBREAKFAST [facility] Last Admin: 11/08/20 06:31 Dose: 100 mcg Documented by: Lidocaine (Lidoderm 5%) 700 mg TOP DAILY [facility] Last Admin: 11/08/20 09:02 Dose: 700 mg Documented by: Metoprolol Tartrate (Lopressor) 75 mg PO BID [facility] Last Admin: 11/08/20 07:29 Dose: 75 mg Documented by: Multivitamins/Minerals (Prosight) 1 tab PO DAILY [facility] Last Admin: 11/08/20 07:28 Dose: 1 tab Documented by: Clobetasol [ Clobetasol 0.05%] Cream Ptom 0 applic TOP ASDIRECTED PRN PRN Reason: Rash Escitalopram Oxalate [Escitalopram Oxalate] 20 Mg Ptom 0 mg PO DAILY [facility] Last Admin: 11/08/20 07:32 Dose: 20 mg Documented by: Formoterol [ Perforomist] 20 Mcg Neb Ptom 0 mcg INH BID [facility] Last Admin: 11/08/20 07:32 Dose: 20 mcg Documented by: Roflumilast [ Daliresp] 500 Mcg Tab Ptom 0 mcg PO DAILY [facility] Last Admin: 11/08/20 07:33 Dose: 500 mcg Documented by: Spiriva Respimat 2. (5mcg/Act Ptom) 0 each INH DAILY [facility] Last Admin: 11/08/20 07:29 Dose: 2 each Documented by: Pantoprazole Sodium (Protonix Iv) 40 mg IVPUSH Q12H [facility] Last Admin: 11/08/20 07:35 Dose: 40 mg Documented by: Simethicone (Simethicone) 80 mg PO Q6H PRN PRN Reason: Gas Last Admin: 11/08/20 09:05 Dose: 80 mg Documented by: Sodium Chloride (Saline Flush) 10 ml FLUSH ASDIRECTED PRN PRN Reason: Keep Vein Open Discontinued Medications Budesonide (Pulmicort) 0.5 mg INH BID [facility] Last Admin: 11/08/20 08:36 Dose: Not Given Documented by: Diltiazem HCl (Diltiazem) 10 mg IVPUSH ONETIME [facility] Stop: 11/07/20 13:47 Last Admin: 11/07/20 14:13 Dose: 10 mg Documented by: Diltiazem HCl (Cardizem) 30 mg PO Q6H [facility] Last Admin: 11/08/20 05:27 Dose: 30 mg Documented by: Diltiazem HCl (Diltiazem) 10 mg IVPUSH ONETIME [facility] Stop: 11/07/20 18:23 Last Admin: 11/07/20 18:44 Dose: 10 mg Documented by: Lidocaine (Lidoderm 5%) 700 mg TOP DAILY PRN PRN Reason: Pain Non-Formulary Medication (Acetaminophen/Diphenhydramine [Tylenol Pm Ex-Strength Caplet]) 0.5 tab PO BEDTIME [facility] Non-Formulary Medication (Formoterol [Perforomist]) 20 mcg NEB BIDRT [facility] Non-Formulary Medication (Lidocaine [Lidocaine]) 1 each TP ASDIRECTED PRN PRN Reason: Pain Non-Formulary Medication (Nebulizer Accessories [Muna Lc Plus Nebulizer]) 1 puff INH ASDIRECTED [facility] Pantoprazole Sodium (Protonix Iv) 40 mg IVPUSH ONETIME ONE Stop: 11/07/20 14:01 Last Admin: 11/07/20 14:29 Dose: 40 mg Documented by: - Exam Quality Assessment: Supplemental Oxygen General: Alert, Oriented Lungs: Decreased Breath Sounds, Crackles Cardiovascular: Regular Rate, Irregular Rhythm GI/Abdominal Exam: Normal Bowel Sounds, Soft, Non-Tender, No Distention Extremities: Normal Inspection, Non-Tender, No Pedal Edema Peripheral Pulses: 1+: Dorsalis Pedis (L), Dorsalis Pedis (R) Skin: Warm, Dry, Intact Neurological: No New Focal Deficit Psy/Mental Status: Alert, Normal Affect, Normal Mood Sepsis Event Note - Evaluation Sepsis Screening Result: No Definite Risk - Focused Exam Vital Signs: Vital Signs Temp Pulse Pulse Resp BP BP Pulse Ox 11/08/20 07:49 97.6 F 97 20 161/98 H 95 11/08/20 07:29 97 161/98 H 11/08/20 03:32 97.7 F 105 H 20 152/89 H 97 11/07/20 23:21 97.4 F 101 H 18 149/88 H 97 - Problem List & Annotations (1) Atrial fibrillation with RVR SNOMED Code(s): 476620714311158 Code(s): I48.91 - UNSPECIFIED ATRIAL FIBRILLATION Status: Acute Current Visit: Yes (2) CHF (congestive heart failure) SNOMED Code(s): 43114372 Code(s): I50.9 - HEART FAILURE, UNSPECIFIED Status: Acute Current Visit: Yes Qualifiers: Heart failure type: systolic Heart failure chronicity: acute Qualified Code(s): I50.21 - Acute systolic (congestive) heart failure (3) T7 vertebral fracture SNOMED Code(s): 190790138 Code(s): S22.069A - UNSP FRACTURE OF T7-T8 VERTEBRA, INIT FOR CLOS FX Status: Acute Current Visit: Yes Qualifiers: Encounter type: sequela Fracture type: closed Fracture morphology: wedge compression Qualified Code(s): S22.060S - Wedge compression fracture of T7-T8 vertebra, sequela - Problem List Review Problem List Initiated/Reviewed/Updated: Yes - My Orders Last 24 Hours: My Active Orders 11/08/20 08:06 Diltiazem IR [Cardizem] 60 mg PO Q6H 11/08/20 08:48 Simethicone 80 mg PO Q6H PRN 11/08/20 08:50 Chest 1V Frontal [CR] Routine - Plan Plan:: Patient was started on Cardizem 30mg Q6h yesterday. Patient has shown great rate control upon resting but does spike to the 130's with ambulation. Patient is otherwise asymptomatic at rest. Cardizem increased to 60mg q6h today. Lidocaine patch ordered for back pain. Simethicone ordered prn for gas relief. Physical therapy to evaluate for back brace today. ProBNP did improved today, labs all stable.
[2020-11-09] MEDS: Diltiazem IR 30 MG Tab PO SCH ×4 (01:32→19:33)
[2020-11-09] MEDS: Albuterol 8 GM Inhaler INH PRN (02:19)
[2020-11-09] MEDS: Levothyroxine 100 MCG Tab PO SCH (06:29)
[2020-11-09] MEDS: Metoprolol Tartrate 25 MG Tab PO SCH ×2 (07:56→19:33)
[2020-11-09] MEDS: busPIRone 5 MG Tab PO SCH ×2 (07:57→19:33)
[2020-11-09] MEDS: Simethicone 80 MG Tab.Chew PO PRN ×2 (07:57→17:21)
[2020-11-09] MEDS: Beta-Carotene (Vitamin A) w/Vitamin C & E plus Minerals Tab PO SCH (07:57)
[2020-11-09] MEDS: Apixaban 5 MG Tab PO SCH ×2 (07:58→19:32)
[2020-11-09] MEDS: Pantoprazole 40 MG Vial IVPUSH SCH ×2 (07:58→19:36)
[2020-11-09] MEDS: Albuterol 0.083% 2.5 MG/3 ML Neb Soln INH SCH (07:58)
[2020-11-09] MEDS: Budesonide 0.5 MG/2 ML Neb Susp INH SCH ×2 (07:58→19:37)
[2020-11-09] MEDS: ROFLUMILAST 500 MCG PO SCH (07:59)
[2020-11-09] MEDS: FORMOTEROL 20 MCG INH SCH ×2 (07:59→19:31)
[2020-11-09] MEDS: ESCITALOPRAM OXALATE 20 MG PO SCH (07:59)
[2020-11-09] MEDS: SPIRIVA RESPIMAT INH SCH (08:00)
[2020-11-09] MEDS: Lidocaine 5% 700 MG Patch TOP SCH (08:01)
[2020-11-09] MEDS ORDERED: Albuterol/Ipratropium 3.0-0.5 MG/3 ML Neb Soln NEB PRN (08:23)
[2020-11-09] MEDS ORDERED: methylPREDNISolone Sodium Succinate 125 MG/2 ML SDV IVPUSH SCH (08:30)
[2020-11-09] MEDS ORDERED: Furosemide 20 MG/2 ML VIAL IVPUSH ONE (08:50)
[2020-11-09] MEDS: methylPREDNISolone Sodium Succinate 125 MG/2 ML SDV IVPUSH SCH (09:37)
[2020-11-09] MEDS: cefTRIAXone 1 GM Vial IVPUSH SCH (09:37)
--- NOTE | 2020-11-09 09:47 | PCM.PN ---
- General Info Date of Service: 11/09/20 Functional Status: Reports: Pain Controlled, Tolerating Diet, Ambulating (with assistance), Urinating - Review of Systems General: Reports: No Symptoms HEENT: Reports: No Symptoms Pulmonary: Reports: Shortness of Breath (baseline per patient) Cardiovascular: Reports: Dyspnea on Exertion Gastrointestinal: Reports: No Symptoms Genitourinary: Reports: No Symptoms Musculoskeletal: Reports: No Symptoms Skin: Reports: No Symptoms Neurological: Reports: No Symptoms Psychiatric: Reports: No Symptoms - Patient Data Vitals - Most Recent: Last Vital Signs Temp 98.3 F 11/09/20 08:00 Pulse 70 11/09/20 08:00 Resp 20 11/09/20 08:00 BP 165/83 H 11/09/20 08:00 Pulse Ox 93 L 11/09/20 08:00 Weight - Most Recent: 152 lb 12.8 oz I&O - Last 24 Hours: Intake & Output 11/08/20 11/09/20 11/09/20 22:59 06:59 14:59 Intake Total 600 200 Output Total 500 450 Balance 100 -250 Lab Results Last 24 Hours: Laboratory Results - last 24 hr 11/09/20 Range/Units 07:02 NT-Pro-B Natriuret Pep 1549 H (0-1000) pg/mL Med Orders - Current: Current Medications Acetaminophen (Tylenol Extra Strength) 500 mg PO Q6H PRN PRN Reason: Pain Last Admin: 11/08/20 16:43 Dose: 500 mg Documented by: Albuterol (Ventolin Hfa) 0 gm INH Q4H PRN PRN Reason: Wheezing Last Admin: 11/09/20 02:19 Dose: 1 puff Documented by: Albuterol (Proventil Neb Soln) 2.5 mg INH DAILY [facility] Last Admin: 11/09/20 07:58 Dose: 2.5 mg Documented by: Albuterol/Ipratropium (Duoneb 3.0-0.5 Mg/3 Ml) 3 ml NEB Q4H PRN PRN Reason: Dyspnea Alprazolam (Xanax) 0.25 mg PO Q8H PRN PRN Reason: Anxiety Last Admin: 11/08/20 16:43 Dose: 0.25 mg Documented by: Apixaban (Eliquis) 5 mg PO BID [facility] Last Admin: 11/09/20 07:58 Dose: 5 mg Documented by: Budesonide (Pulmicort) 0.5 mg INH BID [facility] Last Admin: 11/09/20 07:58 Dose: 0.5 mg Documented by: Buspirone HCl (Buspar) 10 mg PO BID [facility] Last Admin: 11/09/20 07:57 Dose: 10 mg Documented by: Ceftriaxone Sodium (Rocephin) 1 gm IVPUSH Q24H [facility] Diltiazem HCl (Cardizem) 30 mg PO Q6H [facility] Last Admin: 11/09/20 07:58 Dose: Not Given Documented by: Levothyroxine Sodium (Synthroid) 100 mcg PO ACBREAKFAST [facility] Last Admin: 11/09/20 06:29 Dose: 100 mcg Documented by: Lidocaine (Lidoderm 5%) 700 mg TOP DAILY [facility] Last Admin: 11/09/20 08:01 Dose: 700 mg Documented by: Methylprednisolone Sodium Succinate (Solu-Medrol) 62.5 mg IVPUSH Q24H [facility] Metoprolol Tartrate (Lopressor) 75 mg PO BID [facility] Last Admin: 11/09/20 07:56 Dose: 75 mg Documented by: Multivitamins/Minerals (Prosight) 1 tab PO DAILY [facility] Last Admin: 11/09/20 07:57 Dose: 1 tab Documented by: Clobetasol [ Clobetasol 0.05%] Cream Ptom 0 applic TOP ASDIRECTED PRN PRN Reason: Rash Escitalopram Oxalate [Escitalopram Oxalate] 20 Mg Ptom 0 mg PO DAILY [facility] Last Admin: 11/09/20 07:59 Dose: 20 mg Documented by: Formoterol [ Perforomist] 20 Mcg Neb Ptom 0 mcg INH BID [facility] Last Admin: 11/09/20 07:59 Dose: 20 mcg Documented by: Roflumilast [ Daliresp] 500 Mcg Tab Ptom 0 mcg PO DAILY [facility] Last Admin: 11/09/20 07:59 Dose: 500 mcg Documented by: Spiriva Respimat 2. (5mcg/Act Ptom) 0 each INH DAILY [facility] Last Admin: 11/09/20 08:00 Dose: 2 each Documented by: Pantoprazole Sodium (Protonix Iv) 40 mg IVPUSH Q12H [facility] Last Admin: 11/09/20 07:58 Dose: 40 mg Documented by: Simethicone (Simethicone) 80 mg PO TIDAC PRN PRN Reason: Gas Last Admin: 11/09/20 07:57 Dose: 80 mg Documented by: Sodium Chloride (Saline Flush) 10 ml FLUSH ASDIRECTED PRN PRN Reason: Keep Vein Open Discontinued Medications Budesonide (Pulmicort) 0.5 mg INH BID [facility] Last Admin: 11/08/20 08:36 Dose: Not Given Documented by: Diltiazem HCl (Diltiazem) 10 mg IVPUSH ONETIME STA Stop: 11/07/20 13:47 Last Admin: 11/07/20 14:13 Dose: 10 mg Documented by: Diltiazem HCl (Cardizem) 30 mg PO Q6H [facility] Last Admin: 11/08/20 05:27 Dose: 30 mg Documented by: Diltiazem HCl (Diltiazem) 10 mg IVPUSH ONETIME STA Stop: 11/07/20 18:23 Last Admin: 11/07/20 18:44 Dose: 10 mg Documented by: Diltiazem HCl (Cardizem) 60 mg PO Q6H [facility] Last Admin: 11/08/20 19:56 Dose: 60 mg Documented by: Furosemide (Lasix) 20 mg IVPUSH ONETIME ONE Stop: 11/09/20 08:51 Lidocaine (Lidoderm 5%) 700 mg TOP DAILY PRN PRN Reason: Pain Methylprednisolone Sodium Succinate (Solu-Medrol) 125 mg IVPUSH Q24H [facility] Non-Formulary Medication (Acetaminophen/Diphenhydramine [Tylenol Pm Ex-Strength Caplet]) 0.5 tab PO BEDTIME [facility] Non-Formulary Medication (Formoterol [Perforomist]) 20 mcg NEB BIDRT [facility] Non-Formulary Medication (Lidocaine [Lidocaine]) 1 each TP ASDIRECTED PRN PRN Reason: Pain Non-Formulary Medication (Nebulizer Accessories [Muna Lc Plus Nebulizer]) 1 puff INH ASDIRECTED [facility] Pantoprazole Sodium (Protonix Iv) 40 mg IVPUSH ONETIME ONE Stop: 11/07/20 14:01 Last Admin: 11/07/20 14:29 Dose: 40 mg Documented by: Simethicone (Simethicone) 80 mg PO Q6H PRN PRN Reason: Gas Last Admin: 11/08/20 12:02 Dose: 80 mg Documented by: - Exam General: Alert, Oriented, Cooperative, No Acute Distress Neck: Supple, Trachea Midline, No JVD Lungs: Rhonchi (moderate throughout), Wheezing (moderate throughout) Cardiovascular: Regular Rate, Regular Rhythm, Other (no longer in a-fib) GI/Abdominal Exam: Soft, Non-Tender Back Exam: Normal Inspection, Full Range of Motion Extremities: Normal Inspection, Normal Range of Motion, Non-Tender, No Pedal Edema, Normal Capillary Refill Peripheral Pulses: 2+: Radial (L), Radial (R), Posterior Tibial (L), Posterior Tibial (R) Skin: Warm, Dry, Intact Neurological: No New Focal Deficit Psy/Mental Status: Alert, Normal Affect, Normal Mood Sepsis Event Note - Evaluation Sepsis Screening Result: No Definite Risk - Focused Exam Vital Signs: Vital Signs Temp Pulse Pulse Resp BP BP Pulse Ox 11/09/20 08:00 98.3 F 70 20 165/83 H 93 L 11/09/20 07:56 70 165/83 H 11/09/20 04:00 97.2 F 66 18 154/84 H 98 11/09/20 00:00 97.5 F 61 18 135/80 96 - Problem List Review Problem List Initiated/Reviewed/Updated: Yes - My Orders Last 24 Hours: My Active Orders 11/09/20 02:00 Diltiazem IR [Cardizem] 30 mg PO Q6H 11/09/20 08:23 Albuterol/Ipratropium [DuoNeb 3.0-0.5 MG/3 ML] 3 ml NEB Q4H PRN 11/09/20 08:30 methylPREDNISolone Sod Succ [Solu-MEDROL] 62.5 mg IVPUSH Q24H 11/09/20 09:00 cefTRIAXone [Rocephin] 1 gm IVPUSH Q24H - Plan Plan:: Patient was started on Cardizem 30mg Q6h yesterday. Patient has shown great rate control upon resting but does spike to the 130's with ambulation. Patient is otherwise asymptomatic at rest. Cardizem increased to 60mg q6h today. Lidocaine patch ordered for back pain. Simethicone ordered prn for gas relief. Physical therapy to evaluate for back brace today. ProBNP did improved today, labs all stable. 11/09/20 0830am Patient was admitted for new onset a-fib with RVR, standing rate in the 130s. Patient was symptomatic with shortness of breath. Patient was started on Cardizem 30mg PO q6hr, then increased yesterday to 60mg. Yesterday evening, the RN called me and told me the patient no longer has symptoms and is now in NS kaylen with rate in the 50s. Her Cardizem dose was held at 2am and 8am due to the patient having a HR of 60. The patient this morning is sitting up in bed with daughter at bedside. Patient is alert and oriented. She reports that she does feel much better compared to yesterday. I reviewed patient CXR that shows mild pulmonary congestion that was done yesterday. I believe this is from her a-fib and believe this will improve after a-fib conversion. Will give Lasix x1 does this morning for CXR result. Her BNP has improved today. Radiologist also reviewed the CXR and reports possible infiltrate bilateral bases, left worse than right. Could be atelectasis. WBC is wnl, no fever. Will treat with Rocephin due to infiltrate impression and patient lungs are moderate wheezing with decreased breath sounds bilateral bases with mild crackles. The plan is to treat infiltrate, pulmonary edema. Have decreased Cardizem back down to 30mg q6hr. Will continue admit, possible discharge Wednesday if improvement continues.
[2020-11-09] MEDS: ALPRAZolam 0.25 MG Tab PO PRN ×2 (09:48→22:49)
[2020-11-09] MEDS: Azithromycin 250 MG Tab PO SCH (19:33)
[2020-11-09] MEDS: Acetaminophen 500 MG Tab PO PRN (19:47)
[2020-11-10] MEDS: Diltiazem IR 30 MG Tab PO SCH ×4 (03:16→20:12)
[2020-11-10] MEDS: Levothyroxine 100 MCG Tab PO SCH (06:15)
[2020-11-10] MEDS: Acetaminophen 500 MG Tab PO PRN ×2 (06:15→20:11)
[2020-11-10] MEDS: Lidocaine 5% 700 MG Patch TOP SCH (08:07)
--- NOTE | 2020-11-10 08:09 | PCM.PN ---
- General Info Date of Service: 11/10/20 Functional Status: Reports: Pain Controlled, Tolerating Diet, Ambulating (up with assistance), Urinating (Out 2350 ml yesterday). Denies: New Symptoms - Review of Systems General: Reports: No Symptoms HEENT: Reports: No Symptoms Pulmonary: Reports: Shortness of Breath (Chronic, much even improved from yesterday per patient) Cardiovascular: Reports: Dyspnea on Exertion (chronic, but improved from yesterday). Denies: Chest Pain, Edema, Lightheadedness Gastrointestinal: Reports: No Symptoms Genitourinary: Reports: No Symptoms Musculoskeletal: Reports: No Symptoms Skin: Reports: No Symptoms Neurological: Reports: No Symptoms Psychiatric: Reports: No Symptoms - Patient Data Vitals - Most Recent: Last Vital Signs Temp 97.7 F 11/10/20 03:30 Pulse 75 11/10/20 03:30 Resp 20 11/10/20 03:30 BP 165/83 H 11/10/20 03:30 Pulse Ox 94 L 11/10/20 03:30 Weight - Most Recent: 153 lb I&O - Last 24 Hours: Intake & Output 11/09/20 11/10/20 11/10/20 22:59 06:59 14:59 Intake Total 950 250 Output Total 1450 900 Balance -500 -650 Med Orders - Current: Current Medications Acetaminophen (Tylenol Extra Strength) 500 mg PO Q6H PRN PRN Reason: Pain Last Admin: 11/10/20 06:15 Dose: 500 mg Documented by: Albuterol (Ventolin Hfa) 0 gm INH Q4H PRN PRN Reason: Wheezing Last Admin: 11/09/20 02:19 Dose: 1 puff Documented by: Albuterol (Proventil Neb Soln) 2.5 mg INH DAILY [facility] Last Admin: 11/09/20 07:58 Dose: 2.5 mg Documented by: Albuterol/Ipratropium (Duoneb 3.0-0.5 Mg/3 Ml) 3 ml NEB Q4H PRN PRN Reason: Dyspnea Alprazolam (Xanax) 0.25 mg PO Q8H PRN PRN Reason: Anxiety Last Admin: 11/09/20 22:49 Dose: 0.25 mg Documented by: Apixaban (Eliquis) 5 mg PO BID [facility] Last Admin: 11/09/20 19:32 Dose: 5 mg Documented by: Azithromycin (Zithromax) 500 mg PO DAILY [facility] Last Admin: 11/09/20 19:33 Dose: 500 mg Documented by: Budesonide (Pulmicort) 0.5 mg INH BID [facility] Last Admin: 11/09/20 19:37 Dose: 0.5 mg Documented by: Buspirone HCl (Buspar) 10 mg PO BID [facility] Last Admin: 11/09/20 19:33 Dose: 10 mg Documented by: Ceftriaxone Sodium (Rocephin) 1 gm IVPUSH Q24H [facility] Last Admin: 11/09/20 09:37 Dose: 1 gm Documented by: Diltiazem HCl (Cardizem) 30 mg PO Q6H [facility] Last Admin: 11/10/20 03:16 Dose: 30 mg Documented by: Levothyroxine Sodium (Synthroid) 100 mcg PO ACBREAKFAST [facility] Last Admin: 11/10/20 06:15 Dose: 100 mcg Documented by: Lidocaine (Lidoderm 5%) 700 mg TOP DAILY [facility] Last Admin: 11/10/20 08:07 Dose: 700 mg Documented by: Methylprednisolone Sodium Succinate (Solu-Medrol) 62.5 mg IVPUSH Q24H [facility] Last Admin: 11/09/20 09:37 Dose: 62.5 mg Documented by: Metoprolol Tartrate (Lopressor) 75 mg PO BID [facility] Last Admin: 11/09/20 19:33 Dose: 75 mg Documented by: Multivitamins/Minerals (Prosight) 1 tab PO DAILY [facility] Last Admin: 11/09/20 07:57 Dose: 1 tab Documented by: Clobetasol [ Clobetasol 0.05%] Cream Ptom 0 applic TOP ASDIRECTED PRN PRN Reason: Rash Escitalopram Oxalate [Escitalopram Oxalate] 20 Mg Ptom 0 mg PO DAILY [facility] Last Admin: 11/09/20 07:59 Dose: 20 mg Documented by: Formoterol [ Perforomist] 20 Mcg Neb Ptom 0 mcg INH BID [facility] Last Admin: 11/09/20 19:31 Dose: 20 mcg Documented by: Roflumilast [ Daliresp] 500 Mcg Tab Ptom 0 mcg PO DAILY [facility] Last Admin: 11/09/20 07:59 Dose: 500 mcg Documented by: Spiriva Respimat 2. (5mcg/Act Ptom) 0 each INH DAILY [facility] Last Admin: 11/09/20 08:00 Dose: 2 each Documented by: Pantoprazole Sodium (Protonix Iv) 40 mg IVPUSH Q12H [facility] Last Admin: 11/09/20 19:36 Dose: 40 mg Documented by: Simethicone (Simethicone) 80 mg PO TIDAC PRN PRN Reason: Gas Last Admin: 11/09/20 17:21 Dose: 80 mg Documented by: Sodium Chloride (Saline Flush) 10 ml FLUSH ASDIRECTED PRN PRN Reason: Keep Vein Open Discontinued Medications Budesonide (Pulmicort) 0.5 mg INH BID [facility] Last Admin: 11/08/20 08:36 Dose: Not Given Documented by: Diltiazem HCl (Diltiazem) 10 mg IVPUSH ONETIME STA Stop: 11/07/20 13:47 Last Admin: 11/07/20 14:13 Dose: 10 mg Documented by: Diltiazem HCl (Cardizem) 30 mg PO Q6H [facility] Last Admin: 11/08/20 05:27 Dose: 30 mg Documented by: Diltiazem HCl (Diltiazem) 10 mg IVPUSH ONETIME STA Stop: 11/07/20 18:23 Last Admin: 11/07/20 18:44 Dose: 10 mg Documented by: Diltiazem HCl (Cardizem) 60 mg PO Q6H [facility] Last Admin: 11/08/20 19:56 Dose: 60 mg Documented by: Furosemide (Lasix) 20 mg IVPUSH ONETIME ONE Stop: 11/09/20 08:51 Last Admin: 11/09/20 09:37 Dose: 20 mg Documented by: Lidocaine (Lidoderm 5%) 700 mg TOP DAILY PRN PRN Reason: Pain Methylprednisolone Sodium Succinate (Solu-Medrol) 125 mg IVPUSH Q24H [facility] Non-Formulary Medication (Acetaminophen/Diphenhydramine [Tylenol Pm Ex-Strength Caplet]) 0.5 tab PO BEDTIME [facility] Non-Formulary Medication (Formoterol [Perforomist]) 20 mcg NEB BIDRT [facility] Non-Formulary Medication (Lidocaine [Lidocaine]) 1 each TP ASDIRECTED PRN PRN Reason: Pain Non-Formulary Medication (Nebulizer Accessories [Muna Lc Plus Nebulizer]) 1 puff INH ASDIRECTED [facility] Pantoprazole Sodium (Protonix Iv) 40 mg IVPUSH ONETIME ONE Stop: 11/07/20 14:01 Last Admin: 11/07/20 14:29 Dose: 40 mg Documented by: Simethicone (Simethicone) 80 mg PO Q6H PRN PRN Reason: Gas Last Admin: 11/08/20 12:02 Dose: 80 mg Documented by: - Exam Quality Assessment: Supplemental Oxygen (2L NC) General: Alert, Oriented, Cooperative Neck: Supple, Trachea Midline, No JVD Lungs: Normal Respiratory Effort, Decreased Breath Sounds (moderate throughout), Rhonchi, Other (Lung sounds much improved compared to yesterday). No: Crackles, Wheezing Cardiovascular: Regular Rate, Regular Rhythm GI/Abdominal Exam: Soft, Non-Tender Back Exam: Normal Inspection, Full Range of Motion Extremities: Normal Inspection, Normal Range of Motion, Non-Tender, No Pedal Edema, Normal Capillary Refill Peripheral Pulses: 2+: Radial (L), Radial (R), Posterior Tibial (L), Posterior Tibial (R), Dorsalis Pedis (L), Dorsalis Pedis (R) Skin: Warm, Dry, Intact Neurological: No New Focal Deficit, Normal Gait, Normal Speech Psy/Mental Status: Alert, Normal Affect, Normal Mood Sepsis Event Note - Evaluation Sepsis Screening Result: No Definite Risk - Focused Exam Vital Signs: Vital Signs Temp Pulse Resp BP Pulse Ox 11/10/20 03:30 97.7 F 75 20 165/83 H 94 L 11/09/20 23:23 98.1 F 76 18 148/77 H 96 - Problem List Review Problem List Initiated/Reviewed/Updated: Yes - My Orders Last 24 Hours: My Active Orders 11/09/20 08:23 Albuterol/Ipratropium [DuoNeb 3.0-0.5 MG/3 ML] 3 ml NEB Q4H PRN 11/09/20 08:30 methylPREDNISolone Sod Succ [Solu-MEDROL] 62.5 mg IVPUSH Q24H 11/09/20 09:00 cefTRIAXone [Rocephin] 1 gm IVPUSH Q24H 11/09/20 20:00 Azithromycin [Zithromax] 500 mg PO DAILY 11/10/20 07:56 BASIC METABOLIC PANEL,BMP [CHEM] DAILY CBC WITH AUTO DIFF [HEME] DAILY PRO B-TYPE NATRIUR PEPT,BNPPRO [CHEM] DAILY 11/11/20 07:56 BASIC METABOLIC PANEL,BMP [CHEM] DAILY CBC WITH AUTO DIFF [HEME] DAILY 11/11/20 08:00 PRO B-TYPE NATRIUR PEPT,BNPPRO [CHEM] DAILY - Plan Plan:: Patient was started on Cardizem 30mg Q6h yesterday. Patient has shown great rate control upon resting but does spike to the 130's with ambulation. Patient is otherwise asymptomatic at rest. Cardizem increased to 60mg q6h today. Lidocaine patch ordered for back pain. Simethicone ordered prn for gas relief. Physical therapy to evaluate for back brace today. ProBNP did improved today, labs all stable. 11/09/20 0830am Patient was admitted for new onset a-fib with RVR, standing rate in the 130s. Patient was symptomatic with shortness of breath. Patient was started on Cardizem 30mg PO q6hr, then increased yesterday to 60mg. Yesterday evening, the RN called me and told me the patient no longer has symptoms and is now in NS kaylen with rate in the 50s. Her Cardizem dose was held at 2am and 8am due to the patient having a HR of 60. The patient this morning is sitting up in bed with daughter at bedside. Patient is alert and oriented. She reports that she does feel much better compared to yesterday. I reviewed patient CXR that shows mild pulmonary congestion that was done yesterday. I believe this is from her a-fib and believe this will improve after a-fib conversion. Will give Lasix x1 does this morning for CXR result. Her BNP has improved today. Radiologist also reviewed the CXR and reports possible infiltrate bilateral bases, left worse than right. Could be atelectasis. WBC is wnl, no fever. Will treat with Rocephin due to infiltrate impression and patient lungs are moderate wheezing with decreased breath sounds bilateral bases with mild crackles. The plan is to treat infiltrate, pulmonary edema. Have decreased Cardizem back down to 30mg q6hr. Will continue admit, possible discharge Wednesday if improvement continues. 11/10/20 0745am Patient remains in NSR with rate of 74 today. Her BPs have been stable and not hypotensive. She has continued to get the Cardizem 30mg every 6 hours, her last known time she did not take was 8am yesterday due to bradycardia and hypotension. Yesterday, patient was started on steroids, rocephin, and zithromax. She got a 1 time dose of Lasix yesterday. Yesterday she had 2350ml output. Today, the patient has no edema, no crackles in lungs, no wheezes. While she is decreased throughout and rhonchi, she has a history of COPD. Her lungs sound much improved today. She reports that she is feeling significantly better today. She reports taht her shortness of breath is the best it has been in a long time. She reports she still has some shortness of breath, but always does. Today, she was able to sit up in the bed with limited assistance and swing her legs off the side of the bed without assistance. She reports that her energy level today is very good and that she is feeling good. Labs have been ordered, but not resulted yet for today. Patient clinically looks good. I anticipate this patient will go home tomorrow. At this time, I will not make any changes to her care today and continue the current plan. I do not feel she needs Lasix today, but that can be evaluated tomorrow if she will need out patient. I believe the o ne time dose and patient being back in NSR hopefully should be sufficient.
[2020-11-10] MEDS: methylPREDNISolone Sodium Succinate 125 MG/2 ML SDV IVPUSH SCH (08:22)
[2020-11-10] MEDS: Simethicone 80 MG Tab.Chew PO PRN (08:22)
[2020-11-10] MEDS: Apixaban 5 MG Tab PO SCH ×2 (08:23→20:13)
[2020-11-10] MEDS: Albuterol 0.083% 2.5 MG/3 ML Neb Soln INH SCH (08:23)
[2020-11-10] MEDS: Azithromycin 250 MG Tab PO SCH (08:23)
[2020-11-10] MEDS: Budesonide 0.5 MG/2 ML Neb Susp INH SCH ×2 (08:23→20:08)
[2020-11-10] MEDS: busPIRone 5 MG Tab PO SCH ×2 (08:23→20:11)
[2020-11-10] MEDS: Beta-Carotene (Vitamin A) w/Vitamin C & E plus Minerals Tab PO SCH (08:24)
[2020-11-10] MEDS: Metoprolol Tartrate 25 MG Tab PO SCH ×2 (08:24→20:13)
[2020-11-10] MEDS: cefTRIAXone 1 GM Vial IVPUSH SCH (08:25)
[2020-11-10] MEDS: Pantoprazole 40 MG Vial IVPUSH SCH ×2 (08:25→20:11)
[2020-11-10] MEDS: ESCITALOPRAM OXALATE 20 MG PO SCH (08:26)
[2020-11-10] MEDS: ROFLUMILAST 500 MCG PO SCH (08:27)
[2020-11-10] MEDS: SPIRIVA RESPIMAT INH SCH (08:28)
[2020-11-10] MEDS: FORMOTEROL 20 MCG INH SCH ×2 (08:42→20:07)
[2020-11-10] MEDS: ALPRAZolam 0.25 MG Tab PO PRN (20:13)
[2020-11-11] MEDS: Diltiazem IR 30 MG Tab PO SCH ×2 (02:06→07:41)
[2020-11-11] MEDS: Levothyroxine 100 MCG Tab PO SCH (06:25)
[2020-11-11] MEDS: Lidocaine 5% 700 MG Patch TOP SCH (07:39)
[2020-11-11] MEDS: Azithromycin 250 MG Tab PO SCH (07:41)
[2020-11-11] MEDS: Beta-Carotene (Vitamin A) w/Vitamin C & E plus Minerals Tab PO SCH (07:41)
[2020-11-11] MEDS: Apixaban 5 MG Tab PO SCH (07:41)
[2020-11-11] MEDS: busPIRone 5 MG Tab PO SCH (07:42)
[2020-11-11] MEDS: Albuterol 0.083% 2.5 MG/3 ML Neb Soln INH SCH (07:42)
[2020-11-11] MEDS: methylPREDNISolone Sodium Succinate 125 MG/2 ML SDV IVPUSH SCH (07:42)
[2020-11-11] MEDS: Metoprolol Tartrate 25 MG Tab PO SCH (07:42)
[2020-11-11] MEDS: SPIRIVA RESPIMAT INH SCH (07:44)
[2020-11-11] MEDS: Pantoprazole 40 MG Vial IVPUSH SCH (07:45)
[2020-11-11] MEDS: ESCITALOPRAM OXALATE 20 MG PO SCH (07:45)
[2020-11-11] MEDS: ROFLUMILAST 500 MCG PO SCH (07:46)
[2020-11-11] MEDS: Budesonide 0.5 MG/2 ML Neb Susp INH SCH (07:46)
[2020-11-11] MEDS: FORMOTEROL 20 MCG INH SCH (07:52)
[2020-11-11] MEDS: Simethicone 80 MG Tab.Chew PO PRN (08:32)
[2020-11-11] MEDS: cefTRIAXone 1 GM Vial IVPUSH SCH (08:39)
[2020-11-11 13:00] VITALS: BP 125/57
[2020-11-11 15:07] VITALS: PULSE 63
--- NOTE | 2020-11-11 23:44 | PCM.DCSUM1 ---
Discharge Summary - Hospital Course HPI Initial Comments: Radha is an 85 yo female who was admitted to the hospital on the 07 of November with Afib with RVR. Patient also did suffer a T7 compression fracture on the 17 of October. Was recently started on prednisone on the 04 of November. She admits she had been having a productive cough the last few days prior to admission. Patient was asymptomatic at rest but felt very dizzy and weak upon ambulation. She had noticed with every time she tried getting up and walking her heart rate would increase. Patient has been on oxygen via nasal canula of 2.5 L/min. Oxygen saturations were monitored at home and did maintain in the high 90's. Patient underwent thorough workup on admission and was started on Cardizem. - Discharge Data Discharge Date: 11/11/20 Discharge Disposition: Home, Self-Care 01 Condition: Good - Referral to Home Health Primary Care Physician: Piper Yancey PA-C - Discharge Diagnosis/Problem(s) (1) Atrial fibrillation with RVR SNOMED Code(s): 138645490169272 ICD Code: I48.91 - UNSPECIFIED ATRIAL FIBRILLATION Status: Acute (2) CHF (congestive heart failure) SNOMED Code(s): 00506590 ICD Code: I50.9 - HEART FAILURE, UNSPECIFIED Status: Acute Qualifiers: Heart failure type: systolic Heart failure chronicity: acute Qualified Code(s): I50.21 - Acute systolic (congestive) heart failure (3) T7 vertebral fracture SNOMED Code(s): 346602051 ICD Code: S22.069A - UNSP FRACTURE OF T7-T8 VERTEBRA, INIT FOR CLOS FX Status: Acute Qualifiers: Encounter type: sequela Fracture type: closed Fracture morphology: wedge compression Qualified Code(s): S22.060S - Wedge compression fracture of T7-T8 vertebra, sequela - Patient Summary/Data Consults: Consultations 11/07/20 13:42 PT Evaluation and Treatment [CONS] Routine - Patient Instructions Diet: Usual Diet as Tolerated Activity: As Tolerated - Discharge Plan Prescriptions/Med Rec: Diltiazem [Cardizem CD] 120 mg PO DAILY #30 cap.er Home Medications: Home Meds Albuterol Sulfate 3 ml INH DAILY 02/04/15 [History] Levothyroxine [Synthroid] 100 mcg PO DAILY 02/05/15 [History] Tiotropium [Spiriva HandiHaler] 2 puff INH DAILY 02/05/15 [History] Beta-Carotene(A)-Vits C,E/Mins [Vision Vitamins] 2 tab PO DAILY 04/10/15 [History] Calcium Carb, Citrate/Vit D3 [Calcium + D3 ER Tablet] 2 tab PO DAILY 04/10/15 [History] Garlic [Garlique] 1 tab PO DAILY 04/10/15 [History] Roflumilast [Daliresp] 500 mcg PO DAILY 07/31/16 [History] Denosumab [Prolia] 60 mg SUBCUT Q6M 03/08/17 [History] Acetaminophen [Tylenol Extra Strength] 500 mg PO Q4HR PRN 03/28/19 [History] Albuterol [Ventolin 2 MG/5 ML] 1 - 2 puff INH Q4HR PRN 03/28/19 [History] Fluticasone Propionate [Flonase Allergy Relief] 2 each ANDRE DAILY PRN 03/28/19 [History] Escitalopram Oxalate 20 mg PO DAILY 09/02/19 [History] Apixaban [Eliquis] 5 mg PO BID 11/06/19 [History] Famotidine [Pepcid] 10 mg PO DAILY 11/06/19 [History] Metoprolol Tartrate 75 mg PO BID 11/06/19 [History] busPIRone HCl [Buspirone HCl] 10 mg PO BID 11/06/19 [History] Ferrous Sulfate 324 mg PO DAILY 03/25/20 [History] ALPRAZolam [Alprazolam] 0.25 mg PO Q8HR PRN 11/07/20 [History] Budesonide [Pulmicort] 2 ml INH BID 11/07/20 [History] Clobetasol [Clobetasol 0.05%] 1 applic TOP ASDIRECTED 11/07/20 [History] Formoterol [Perforomist] 20 mcg INH BID 11/07/20 [History] Lidocaine 1 each TP ASDIRECTED PRN 11/07/20 [History] Nebulizer Accessories [Muna Lc Plus Nebulizer] 1 puff INH ASDIRECTED 11/07/20 [History] predniSONE 20 mg PO DAILY 11/07/20 [History] Diltiazem [Cardizem CD] 120 mg PO DAILY #30 cap.er 11/11/20 [Rx] Patient Handouts: Atrial Fibrillation, Mgbo-to-Aswq Referrals: Piper Yancey PA-C [Primary Care Provider] - (2 weeks) - Discharge Summary/Plan Comment DC Time >30 min.: Yes Discharge Summary/Plan Comment: Radha's daughter is present with her today. She states she feels Radha is back at her baseline and wishes to take her home. She admits she feels she will get more one on one care with family present. Daughter feels since her atrial fibrillation has converted to NSR and no long symptomatic, she needs strengthening and ambulation. Discussed with Radha if she felt safe going home today and she wished to be discharged. Patient has strong family support and will discharge home in the care of her daughter. Physical therapy scheduled for outpatient on Wednesday as daughter wanted to bring her in instead of home health. Patient will be discharged with a new home medication, Cardizem CD 120mg. Dr. Morris did discuss discharge with family today as well. - General Info Date of Service: 11/11/20 Functional Status: Reports: Pain Controlled, Tolerating Diet, Ambulating. Denies: New Symptoms - Review of Systems General: Reports: No Symptoms HEENT: Reports: No Symptoms Pulmonary: Reports: No Symptoms Cardiovascular: Reports: No Symptoms Gastrointestinal: Reports: No Symptoms Genitourinary: Reports: No Symptoms Musculoskeletal: Reports: No Symptoms Neurological: Reports: No Symptoms Psychiatric: Reports: No Symptoms Systems Review Comment: No new symptoms present today. - Patient Data Vitals - Most Recent: Last Vital Signs Temp 97.5 F 11/11/20 12:00 Pulse 63 11/11/20 12:00 Resp 20 11/11/20 12:00 BP 125/57 L 11/11/20 12:00 Pulse Ox 94 L 11/11/20 12:00 Weight - Most Recent: 153 lb 3.2 oz Lab Results - Last 24 hrs: Laboratory Results - last 24 hr 11/11/20 11/11/20 Range/Units 07:06 07:06 WBC 9.7 (5.0-10.0) 10^3/uL RBC 3.45 L (4.00-5.50) 10^6/uL Hgb 10.6 L (12.0-16.0) g/dL Hct 33.0 L (37.0-47.0) % MCV 95.7 H (82.0-94.0) fL MCH 30.7 (27.0-32.0) pg MCHC 32.1 L (33.0-38.0) g/dL RDW Coeff of Teodora 13.4 (11.0-15.0) % Plt Count 336 (150-400) 10^3/uL Neut % (Auto) 82.8 (35-85) % Lymph % (Auto) 9.5 L (10-55) % [place] % (Auto) 7.6 (0-16) % Eos % (Auto) 0 (0-5) % Baso % (Auto) 0.1 (0-3) % Neut # (Auto) 8.05 H (1.80-7.00) 10^3/uL Lymph # (Auto) 0.92 L (1.00-4.80) 10^3/uL [place] # (Auto) 0.74 (0.00-0.80) 10^3/uL Eos # (Auto) 0.00 (0.00-0.45) 10^3/uL Baso # (Auto) 0.01 10^3/uL Sodium 136 (136-145) mEq/L Potassium 4.2 (3.5-5.0) mEq/L Chloride 99 (98-106) mEq/L Carbon Dioxide 32 (21-32) mmol/L BUN 28 H (7-18) mg/dL Creatinine 1.0 (0.6-1.0) mg/dL Est Cr Clr Drug Dosing 36.16 mL/min Estimated GFR (MDRD) 53 L (>=60) mL/min Glucose 111 H (75-99) mg/dL Calcium 9.3 (8.4-10.1) mg/dL NT-Pro-B Natriuret Pep 1172 H (0-1000) pg/mL Med Orders - Current: Current Medications Discontinued Medications Acetaminophen (Tylenol Extra Strength) 500 mg PO Q6H PRN PRN Reason: Pain Last Admin: 11/10/20 20:11 Dose: 500 mg Documented by: Albuterol (Ventolin Hfa) 0 gm INH Q4H PRN PRN Reason: Wheezing Last Admin: 11/09/20 02:19 Dose: 1 puff Documented by: Albuterol (Proventil Neb Soln) 2.5 mg INH DAILY [facility] Last Admin: 11/11/20 07:42 Dose: 2.5 mg Documented by: Albuterol/Ipratropium (Duoneb 3.0-0.5 Mg/3 Ml) 3 ml NEB Q4H PRN PRN Reason: Dyspnea Alprazolam (Xanax) 0.25 mg PO Q8H PRN PRN Reason: Anxiety Last Admin: 11/10/20 20:13 Dose: 0.25 mg Documented by: Apixaban (Eliquis) 5 mg PO BID [facility] Last Admin: 11/11/20 07:41 Dose: 5 mg Documented by: Azithromycin (Zithromax) 500 mg PO DAILY [facility] Last Admin: 11/11/20 07:41 Dose: 500 mg Documented by: Budesonide (Pulmicort) 0.5 mg INH BID [facility] Last Admin: 11/11/20 07:46 Dose: 0.5 mg Documented by: Budesonide (Pulmicort) 0.5 mg INH BID [facility] Last Admin: 11/08/20 08:36 Dose: Not Given Documented by: Buspirone HCl (Buspar) 10 mg PO BID [facility] Last Admin: 11/11/20 07:42 Dose: 10 mg Documented by: Ceftriaxone Sodium (Rocephin) 1 gm IVPUSH Q24H [facility] Last Admin: 11/11/20 08:39 Dose: 1 gm Documented by: Diltiazem HCl (Diltiazem) 10 mg IVPUSH ONETIME STA Stop: 11/07/20 13:47 Last Admin: 11/07/20 14:13 Dose: 10 mg Documented by: Diltiazem HCl (Cardizem) 30 mg PO Q6H [facility] Last Admin: 11/08/20 05:27 Dose: 30 mg Documented by: Diltiazem HCl (Diltiazem) 10 mg IVPUSH ONETIME STA Stop: 11/07/20 18:23 Last Admin: 11/07/20 18:44 Dose: 10 mg Documented by: Diltiazem HCl (Cardizem) 60 mg PO Q6H [facility] Last Admin: 11/08/20 19:56 Dose: 60 mg Documented by: Diltiazem HCl (Cardizem) 30 mg PO Q6H [facility] Last Admin: 11/11/20 07:41 Dose: 30 mg Documented by: Furosemide (Lasix) 20 mg IVPUSH ONETIME ONE Stop: 11/09/20 08:51 Last Admin: 11/09/20 09:37 Dose: 20 mg Documented by: Levothyroxine Sodium (Synthroid) 100 mcg PO ACBREAKFAST [facility] Last Admin: 11/11/20 06:25 Dose: 100 mcg Documented by: Lidocaine (Lidoderm 5%) 700 mg TOP DAILY PRN PRN Reason: Pain Lidocaine (Lidoderm 5%) 700 mg TOP DAILY [facility] Last Admin: 11/11/20 07:39 Dose: 700 mg Documented by: Methylprednisolone Sodium Succinate (Solu-Medrol) 125 mg IVPUSH Q24H [facility] Methylprednisolone Sodium Succinate (Solu-Medrol) 62.5 mg IVPUSH Q24H [facility] Last Admin: 11/11/20 07:42 Dose: 62.5 mg Documented by: Metoprolol Tartrate (Lopressor) 75 mg PO BID [facility] Last Admin: 11/11/20 07:42 Dose: 75 mg Documented by: Multivitamins/Minerals (Prosight) 1 tab PO DAILY [facility] Last Admin: 11/11/20 07:41 Dose: 1 tab Documented by: Non-Formulary Medication (Acetaminophen/Diphenhydramine [Tylenol Pm Ex-Strength Caplet]) 0.5 tab PO BEDTIME [facility] Clobetasol [ Clobetasol 0.05%] Cream Ptom 0 applic TOP ASDIRECTED PRN PRN Reason: Rash Escitalopram Oxalate [Escitalopram Oxalate] 20 Mg Ptom 0 mg PO DAILY [facility] Last Admin: 11/11/20 07:45 Dose: 1 mg Documented by: Formoterol [ Perforomist] 20 Mcg Neb Ptom 0 mcg INH BID [facility] Last Admin: 11/11/20 07:52 Dose: 1 mcg Documented by: Non-Formulary Medication (Formoterol [Perforomist]) 20 mcg NEB BIDRT [facility] Non-Formulary Medication (Lidocaine [Lidocaine]) 1 each TP ASDIRECTED PRN PRN Reason: Pain Non-Formulary Medication (Nebulizer Accessories [Muna Lc Plus Nebulizer]) 1 puff INH ASDIRECTED [facility] Roflumilast [ Daliresp] 500 Mcg Tab Ptom 0 mcg PO DAILY [facility] Last Admin: 11/11/20 07:46 Dose: 1 mcg Documented by: Spiriva Respimat 2. (5mcg/Act Ptom) 0 each INH DAILY [facility] Last Admin: 11/11/20 07:44 Dose: 1 each Documented by: Pantoprazole Sodium (Protonix Iv) 40 mg IVPUSH Q12H [facility] Last Admin: 11/11/20 07:45 Dose: 40 mg Documented by: Pantoprazole Sodium (Protonix Iv) 40 mg IVPUSH ONETIME ONE Stop: 11/07/20 14:01 Last Admin: 11/07/20 14:29 Dose: 40 mg Documented by: Simethicone (Simethicone) 80 mg PO Q6H PRN PRN Reason: Gas Last Admin: 11/08/20 12:02 Dose: 80 mg Documented by: Simethicone (Simethicone) 80 mg PO TIDAC PRN PRN Reason: Gas Last Admin: 11/11/20 08:32 Dose: 80 mg Documented by: Sodium Chloride (Saline Flush) 10 ml FLUSH ASDIRECTED PRN PRN Reason: Keep Vein Open - Exam General: Reports: Alert, Oriented, Cooperative, No Acute Distress Lungs: Reports: Normal Respiratory Effort, Decreased Breath Sounds, Wheezing Cardiovascular: Reports: Regular Rate, Regular Rhythm GI/Abdominal Exam: Normal Bowel Sounds, Soft, Non-Tender Extremities: No Pedal Edema Skin: Reports: Warm, Dry, Intact Neurological: Reports: No New Focal Deficit Psy/Mental Status: Reports: Alert, Normal Affect, Normal Mood
== END 2020-11-11 13:00 | disposition home or self-care (01) | DRG 308 ==
LOC: CC.FCMC 10:30 → CC.MS 10:30 → UNDOADMIN 12:51 → CC.MS 13:42 → UNDODISIN 11-11 13:00
PROVIDERS: ADMIT Physician Assistant Medical; ATTEND Family Medicine
DX: I48.91 Unspecified atrial fibrillation (principal); I50.21 Acute systolic (congestive) heart failure; J44.9 Chronic obstructive pulmonary disease, unspecified; S22.069D Unspecified fracture of T7-T8 vertebra, subsequent encounter for fracture with routine healing; Z79.890 Hormone replacement therapy; Z79.899 Other long term (current) drug therapy; Z79.52 Long term (current) use of systemic steroids; Z88.2 Allergy status to sulfonamides; Z87.440 Personal history of urinary (tract) infections; Z90.49 Acquired absence of other specified parts of digestive tract; Z98.49 Cataract extraction status, unspecified eye; Z98.890 Other specified postprocedural states; Z20.822 Contact with and (suspected) exposure to COVID-19
CPT/HCPCS: 36415; 71045; 71046; 80048; 80053; 81001; 82550; 83615; 83880; 84484; 85025; 85379; 86140; 93005; 93010; 94640; 97110-GP; 97161-GP; A9270-GY; C9113; J0696; J1940; J2930; J3490; J7613-GY; U0002